=== PATIENT | male | born 1945 | race Caucasian/White ===

== ENCOUNTER 2023-03-26 14:38 | Inpatient (IN) | payer MEDICARE, SELFPAY ==
[2023-03-26] VITALS (11 sets, daily range): BP systolic 99–135; BP diastolic 60–85; PULSE 75–115; RESP 16–26; TEMP 36.9; O2SAT 89–100
--- NOTE | ~2023-03-26 | XR_ITS ---
EXAMINATION: XR chest 1V portable Exam Date/Time: 03/31/2023 12:30 APPLICATION COORDINATOR HISTORY: ? atelectasis SOB UPON EXERTION Comparison: 03/27/2023. RESULT: Lines, tubes, and devices: None. Lungs and pleura: Patchy, ill-defined bibasilar airspace disease. Cardiomediastinal silhouette: Stable. Other: No acute osseous or upper abdominal finding. IMPRESSION: Bibasilar airspace disease may represent atelectasis or pneumonia. Reviewed, dictated and finalized at location K. ICATION COORDINATOR
--- NOTE | ~2023-03-26 | XR_ITS ---
EXAMINATION: XR chest 1V portable DATE: 03/27/2023 19:00 INDICATION: Shortness of breath TECHNIQUE: frontal view of the chest was obtained. COMPARISON: Chest radiograph and CT dated 03/26/2023 FINDINGS: Right upper extremity peripherally inserted central venous catheter (PICC) tip at the mid superior v rosa cava. Mild opacities along the bilateral lung bases likely represent persistent atelectasis as se en on the CT from one day prior. No pulmonary edema, pleural effusion or pneumothorax. Heart size is normal. IMPRESSION: 1. Mild opacities at bilateral lung bases and favor persistent dependent atelectasis in the lower lob es over pneumonia. Reviewed, dictated and finalized at location A. ITALITY INTERN IMPRESSION: 1. Mild opacities at bilateral lung bases and favor persistent dependent atelec tasis in the lower lobes over pneumonia.
--- NOTE | ~2023-03-26 | CT_ITS ---
EXAMINATION: CT chest abdomen pelvis w con DATE: 03/26/2023 18:55 INDICATION: Hypoxia. Nausea and vomiting. TECHNIQUE: Computed tomography (CT) of the chest, abdomen, and pelvis was performed with 100 mL Omnip aque-350 intravenous contrast. Automated exposure control and iterative reconstruction technique were employed. The dose-length product was 1373.53 mGy-cm. COMPARISON: None FINDINGS: CHEST CT: Right upper 70 peripherally inserted central venous catheter with distal tip in the cephalad superior vena cava at the confluence of the brachiocephalic veins. Dependent atelectasis in the bilateral low er lobes. No pneumonia, pulmonary edema or pleural effusion. Heart size is normal. Atherosclerotic co ronary artery calcification. No pericardial effusion. Thoracic aorta is normal in caliber with no dis section. Multinodular goiter with intrathoracic extension. No pathologically enlarged thoracic lympha denopathy. Moderate lower cervical and mild thoracic spondylosis with bridging osteophytes at multipl e levels consistent with diffuse idiopathic skeletal hyperostosis (DISH). ABDOMEN/PELVIS CT: Liver, gallbladder, spleen, pancreas and bilateral adrenal glands are normal. There are few bilateral renal cysts the largest measuring 1.8 cm the upper pole of the left kidney. There is moderate coloni c diverticulosis with a sigmoid predominance. There is no adjacent inflammatory change to suggest div erticulitis. Small bowel and appendix are normal. Bladder is normal. No free intraperitoneal gas or fluid. No pathologically enlarged abdominal or pelvic lymphadenopathy. There is calcified atheroscler osis of the aorta and many of the other arteries. Severe lumbar spondylosis. There is subtle acute ap pearing endplate erosions at L4-L5 suggestive of discitis and osteomyelitis. IMPRESSION: 1. Subtle endplate erosions at L4-L5 suspicious for discitis and osteomyelitis and consistent with re ported history of prior spinal infection. Correlate with clinical history. 2. Multinodular goiter with intrathoracic extension. Could consider thyroid ultrasound for risk strat ification. 3. Dependent atelectasis in the bilateral lower lobes. No other acute cardiopulmonary disease. Reviewed, dictated and finalized at location A. ON INSTRUCTOR IMPRESSION: 1. Subtle endplate erosions at L4-L5 suspicious for discitis and osteomyelitis and consistent with reported history of prior spinal infection. Correlate with clinical history. 2. Multinodular goiter with intrathoracic extension. Could consider thyroid ult rasound for risk stratification. 3. Dependent atelectasis in the bilateral lower lobes. No other acute cardiopul monary disease.
--- NOTE | ~2023-03-26 | XR_ITS ---
XR chest 1V portable DATE: 03/26/2023 16:14 INDICATION: Sepsis TECHNIQUE: Portable supine AP chest on March 26, 2023 at 1609 hours COMPARISON: None FINDINGS: Right upper extremity PIC catheter tip overlies the superior vena cava. Heart size appears within normal range,, although not optimally evaluated on AP projection because of magnification. There is aortic calcification and unfolding. No hilar or mediastinal enlargement. There is mild patchy left lower lobe infiltrate and/or atelectasis. The lungs otherwise appear clear. No pleural effusion or pulmonary vascular congestion or pneumothorax. Osteopenia. Degenerative spurring of the thoracic spine. IMPRESSION: Patchy left lower lobe infiltrate and/atelectasis Aortic atherosclerosis Right upper extremity PIC catheter in superior vena cava Reviewed, dictated and finalized at location L. K CHECKER
--- NOTE | ~2023-03-26 | CT_ITS ---
EXAMINATION: CT brain wo con DATE: 03/30/2023 20:53 INDICATION: AMS . TECHNIQUE: Computed tomography (CT) of the head was performed without intravenous contrast. The mA wa s adjusted according to patient size. Iterative reconstruction technique was employed. The dose-lengt h product was 756.67 mGy-cm. COMPARISON: 03/26/2023. FINDINGS: No acute intracranial hemorrhage or extra-axial fluid collection. No hydrocephalus, mass, or herniation. No acute ischemic infarct. Unremarkable dural venous sinus attenuation. No acute osseous abnormality. The aerated spaces are clear. Mild atrophy and chronic white matter change. Atherosclerotic intracranial calcification. Bilateral l ens replacements. IMPRESSION: No acute intracranial process. Reviewed, dictated and finalized at location K. LRY MANAGER
--- NOTE | ~2023-03-26 | XR_ITS ---
EXAMINATION: XR chest PICC line INDICATION: PICC insertion TECHNIQUE: Portable AP chest at 1217 hours on 1223 hours COMPARISON: 03/31/2023 FINDINGS: A left upper extremity PICC has been placed with intravenous tip in the proximal superior v rosa cava. Cardiomegaly is noted. There is a mild diffuse interstitial pattern. Bibasilar airspace opa cities persist but have improved. IMPRESSION: 1. Left upper extremity PICC ending with its tip in the proximal superior vena cava. 2. Cardiomegaly with stable mild pulmonary edema. Reviewed, dictated and finalized at location L. ITURE FINISHER HELPER
--- NOTE | ~2023-03-26 | CT_ITS ---
EXAMINATION: CT brain wo con DATE: 03/26/2023 15:49 INDICATION: Altered mental status. TECHNIQUE: Computed tomography (CT) of the head was performed without intravenous contrast. The mA wa s adjusted according to patient size. Iterative reconstruction technique was employed. The dose-lengt h product was 681.00 mGy-cm. COMPARISON: None FINDINGS: There is no intracranial hemorrhage, acute infarction, or abnormal intracranial mass lesion . The ventricles are normal in size. There are likely changes of ocular lens replacement surgeries. T here is mild mucosal thickening in the paranasal sinuses. The mastoid air cells are normal. IMPRESSION: 1. Normal brain. Reviewed, dictated and finalized at location A. IMPRESSION: 1. Normal brain.
--- NOTE | 2023-03-26 15:06 | ECG_ITS ---
Measurements Intervals [place] Rate: 108 P: 59 OR: 185 QRS: 91 QRSD: 145 T: 9 QT: 349 QTc: 468 Interpretive Statements SINUS TACHYCARDIA RIGHT BUNDLE BRANCH BLOCK [120+ ms QRS DURATION, UPRIGHT V1, 40+ ms S IN I/aVL/V4/V5/V6] NO PREVIOUS ECG AVAILABLE FOR COMPARISON Electronically Signed On 03-26-2023 15:23:00 AWS SOLUTION ARCHITECT by Lonny Kent M.D.
[2023-03-26 15:13] LABS: Hematocrit 39.3 % (42.0-52.0); Mean Corpuscular HGB Conc 30.5 g/dl (32-36); Mean Corpuscular Hemoglobin 27.4 pg (26-34); Mean Corpuscular Volume 89.7 fl (80-100); Mean Platelet Volume 9.2 fl (7.4-10.4); Platelet Count Result 140 k/mm3 (150-375); Red Blood Count 4.38 M/mm3 (4.6-6.20); Red Cell Distribution Width 14.4 % (11.5-14.5); White Blood Count 5.8 K/mm3 (4.5-10.0)
[2023-03-26 15:24] LABS: Alanine Aminotransferase 25 U/L (6-50); Albumin Level 3.3 g/dL (3.5-5.1); Alkaline Phosphatase 85 U/L (38-126); Anion Gap 2 mmol/L (8-16); Aspartate Amino Transferase 25 U/L (17-59); Bilirubin,Total 0.7 mg/dL (0.2-1.3); Blood Urea Nitrogen 19 mg/dL (9-20); Calcium 8.6 mg/dL (8.4-10.2); Carbon Dioxide 32 mmol/L (22-30); Chloride 97 mmol/L (98-107); Estimated CRCL calculation 51 ml/min; Estimated Glomerular Filt Rate 59; Glucose 123 mg/dL (65-110); Potassium 4.7 mmol/L (3.4-5.0); Sodium 131 mmol/L (137-145)
[2023-03-26 15:26] LABS: INR 1.5; Prothrombin Time 18.7 Seconds (11.1-14.7)
[2023-03-26 15:27] LABS: Partial Thromboplastin Time 43.9 SECONDS (22.3-36.8)
[2023-03-26 15:42] LABS: Anisocytosis 1+ (NORMAL); Band Neutrophils Percent 12 % (0-6); Eosinophils Absolute Manual 0.05 K/mm3 (0.02-0.5); Eosinophils Percent Manual 1 % (0-4); Lymphocytes Absolute Manual 0.23 K/mm3 (1.1-4.5); Lymphocytes Percent Manual 4 % (18-44); Metamyelocytes Percent 1 %; Monocytes Absolute Manual 0.29 K/mm3 (0.1-0.90); Monocytes Percent Manual 5 % (3-9); Neutrophils Absolute Manual 5.16 K/mm3 (1.3-6.7); Neutrophils Percent Manual 77 % (46-73); Platelet Estimate Adequate (Adequate); Total Cells Counted 100
[2023-03-26 15:43] LABS: Schistocytes None Seen (NORMAL)
[2023-03-26] MEDS: SODIUM CHLORIDE 0.9% IV 2,800 ML/1,000 ML BAG 999 ML IV CONT ×3 (16:14→17:41)
[2023-03-26 16:39] LABS: Appearance Urine Clear (Clear); Bacteria Urine None Seen /hpf; Bilirubin Urine Negative (Negative); Blood Urine Negative (Negative); Color Urine Dark Yellow (Yellow); Glucose Urine UA Negative (Negative); Ketones Urine Trace mg/dL (Negative); Leukocyte Esterase Ur Trace LEU/UL (Negative); Need Manual Microscopic Reviewed; Nitrate Urine Negative (Negative); Non Pathogenic Casts >20; Protein Urine 2+ mg/dL (Negative); Specific Grav Ur 1.021 (1.001-1.035); Squamous Epithelial Cell Urine Occasional /hpf (Few); WBC Urine 0-5 /hpf; pH Urine 6.5 (5.0-9.0)
[2023-03-26 16:41] LABS: Add Urine Microscopic? YES
[2023-03-26 16:52] LABS: Amphetamine Screen Urine Negative (Negative); Barbiturate Screen Urine Negative (Negative); Benzodiazepines Screen Urine Negative (Negative); Cannabinoid Screen Urine Negative (Negative); Cocaine Screen Urine Negative (Negative); Methadone Screen Urine Negative (Negative); Opiate Screen Urine Positive (Negative); Phencyclidine Screen Urine Negative (Negative)
--- NOTE | 2023-03-26 17:00 | ED.AMS ---
HPI - Altered Mental Status General Chief Complaint: Altered Mental Status Stated Complaint: AMS Time Seen by Provider: 03/26/23 15:00 Source: patient and family Limitations: no limitations History of Present Illness HPI narrative: Patient is a 78-year-old male presents to the emergency department accompanied by significant other for feeling sick . Patient states that he is having recurrent nausea when asked what he means by sick. Patient denies vomiting, diarrhea. Patient admits to no bowel movements for the past 2 days and has a history of constipation for which she takes stool softeners. Patient is coming from the rehabilitation center noting that he was admitted at [facility] for an infection in his back and is on IV antibiotics via PICC line in his right upper extremity and has been taking these as prescribed and is supposed to be on them until April 19. Patient denies any chest pain, difficulty breathing, abdominal pain, numbness, weakness, sore throat, nasal congestion, fever. Patient denies history of requiring supplemental oxygen was currently on 2 L supplemental oxygen to maintain pulse oximetry greater than 92%. Patient denies cough. Related Data Home Medications Medication Instructions Recorded Confirmed acetaminophen 325 mg tablet 325 mg PO Q6H PRN Pain 03/18/23 03/18/23 albuterol sulfate 90 mcg/actuation 2 puff inhalation Q4H PRN 03/18/23 03/18/23 aerosol inhaler Shortness Of Breath Or Wheezing amiodarone 200 mg tablet 200 mg PO DAILY 03/18/23 03/18/23 apixaban 5 mg tablet 5 mg PO BID 03/18/23 03/18/23 bisacodyl 10 mg rectal suppository 10 mg RECTAL DAILY PRN 03/18/23 03/18/23 Constipation- 3rd line clotrimazole 1 % topical cream 1 applic topical BID 03/18/23 03/18/23 daptomycin 500 mg/50 mL in 0.9 % 500 mg IV DAILY 03/18/23 03/18/23 sodium chloride intravenous piggyback diphenhydramine HCl 50 mg capsule 50 mg PO Q4H PRN Itching 03/18/23 03/18/23 ketoconazole 2 % topical cream 1 applic topical BID 03/18/23 03/18/23 lidocaine 5 % topical patch 1 patch topical DAILY 03/18/23 03/18/23 (Lidoderm) metoprolol succinate 25 mg 25 mg PO DAILY 03/18/23 03/18/23 tablet,extended release 24 hr nystatin 100,000 unit/mL oral 500,000 unit PO QID 03/18/23 03/18/23 suspension ondansetron 4 mg disintegrating 4 mg PO Q6H PRN Nausea And Vomiting 03/18/23 03/18/23 tablet oxycodone 5 mg tablet 5 mg PO Q4H PRN Pain rated 6 or 03/18/23 03/18/23 greater pantoprazole 40 mg tablet,delayed 40 mg PO BID 03/18/23 03/18/23 release polyethylene glycol 3350 17 gram 17 g PO DAILY PRN constipation- 03/18/23 03/18/23 oral powder packet (Miralax) 1st line sacubitril 49 mg-valsartan 51 mg 1 tablet PO BID 03/18/23 03/18/23 tablet (Entresto) sennosides 8.6 mg tablet (senna) 8.6 mg PO DAILY PRN Constipation- 03/18/23 03/18/23 2nd line simethicone 80 mg chewable tablet 80 mg PO QID PRN gas pains 03/18/23 03/18/23 spironolactone 25 mg tablet 25 mg PO DAILY 03/18/23 03/18/23 Allergies Allergy/AdvReac Type Severity Reaction Status Date / Time cefazolin Allergy Rash Verified 03/26/23 14:58 codeine Allergy Nausea and Verified 03/26/23 14:58 Vomiting TERBINAFINE HCL Allergy RASH Uncoded 03/26/23 14:58 Review of Systems Review of Systems: A 10 system review of systems was completed on the patient and is negative except for what is stated in the HPI. Nursing and ancillary documentation was reviewed. PMFSH Social History Social History Smoking status: Never smoker Spiritual care concerns: No Comments At time of signature, I have reviewed and agree with nursing past medical, surgical, social and family history unless otherwise noted. Please see the nursing chart for further information. There is no relevant family history pertinent to the presenting complaint. Exam Narrative: CONST: No acute distress. Well nourished. Obese
--- NOTE | 2023-03-26 17:12 | PC.NURSE ---
This RN spoke with Michaela KRISHNAMURTHY at [facility] regarding pt status and current update. Michaela RN also stated that pt is normally A&Ox4
[2023-03-26 17:17] LABS: Acetaminophen < 10 ug/mL (10-30); Ammonia < 9 umol/L (9-30); Ethanol < 10 mg/dL (<10)
[2023-03-26 17:24] LABS: D Dimer 1.91 ug/mL (<0.48)
[2023-03-26 17:26] LABS: NT Pro B Type Natriuretic Pept 1840 pg/mL (19.9-100)
[2023-03-26 17:37] LABS: Lactic Acid Reflex 0.8 mmol/L (0.7-2.0)
[2023-03-26 17:38] LABS: Lipase 26 U/L (23-300); Magnesium 1.6 mg/dL (1.6-2.3)
[2023-03-26 17:43] LABS: Influenza A QL RT-PCR Negative (Negative); Influenza B QL RT-PCR Negative (Negative); RSV RNA, RT-PCR Negative (Negative); SARS-CoV-2 RNA PCR Negative (Negative)
[2023-03-26 17:47] LABS: Creatine Kinase 69 U/L (55-170)
[2023-03-26] MEDS: ONDANSETRON INJ 4 MG/2 ML VIAL IV PUSH (19:04)
[2023-03-26] MEDS: FAMOTIDINE 20 MG/2 ML VIAL IV PUSH (19:05)
--- NOTE | 2023-03-26 19:20 | PC.NURSE ---
Report given to Harsha KRISHNAMURTHY, all questions answered
--- NOTE | 2023-03-26 19:23 | PC.NURSE ---
Assumed care of pt from YESSY Segura at this time.
[2023-03-26 21:14] LABS: Procalcitonin 1.5 ng/mL
--- NOTE | 2023-03-26 21:22 | PM.IMHP ---
H&P: HPI History of Present Illness Date/Time: 03/26/23 21:22 Chief Complaint: AMS Narrative: ?Patient is a 78-year-old male with history of lumbar diskitis, atrial fibrillation who presents to the emergency department accompanied by significant other for feeling sick which he described as having recurrent nausea but no vomiting or diarrhea.? He denies chest pain, abdominal pain, shortness Of breath, fever, cough, congestion, sore throat or chills. patient admits to no bowel movements for the past 2 days and has a history of constipation for which she takes stool softeners.? Patient is coming from the rehabilitation center noting that he was admitted at [facility] for an infection in his back and is on IV antibiotics via PICC line in his right upper extremity and has been taking these as prescribed and is supposed to be on them until April 19.? Patient denies history of requiring supplemental oxygen was currently on 2 L supplemental oxygen to maintain pulse oximetry greater than 92%.? Patient was evaluated in the ER and found to be borderline hypoxemic requiring 2 L of oxygen, and also to have diskitis, elevated troponin which gradually rising. EKG showed right bundle-branch block with no acute STT wave changes. CT chest abdomen pelvis with done with contrast (not a CTA), which showed L4-L5 diskitis with atelectasis. Patient was given IV fluid and also daptomycin continued PMFSH Social History Social History Smoking status: Never smoker Spiritual care concerns: No Meds Home Medications and Allergies Home Medications Medication Instructions Recorded Confirmed Type acetaminophen 325 mg tablet 325 mg PO Q6H PRN Pain 03/18/23 03/18/23 History albuterol sulfate 90 mcg/actuation 2 puff inhalation Q4H PRN 03/18/23 03/18/23 History aerosol inhaler Shortness Of Breath Or Wheezing amiodarone 200 mg tablet 200 mg PO DAILY 03/18/23 03/18/23 History apixaban 5 mg tablet 5 mg PO BID 03/18/23 03/18/23 History bisacodyl 10 mg rectal suppository 10 mg RECTAL DAILY PRN 03/18/23 03/18/23 History Constipation- 3rd line clotrimazole 1 % topical cream 1 applic topical BID 03/18/23 03/18/23 History daptomycin 500 mg/50 mL in 0.9 % 500 mg IV DAILY 03/18/23 03/18/23 History sodium chloride intravenous piggyback diphenhydramine HCl 50 mg capsule 50 mg PO Q4H PRN Itching 03/18/23 03/18/23 History ketoconazole 2 % topical cream 1 applic topical BID 03/18/23 03/18/23 History lidocaine 5 % topical patch 1 patch topical DAILY 03/18/23 03/18/23 History (Lidoderm) metoprolol succinate 25 mg 25 mg PO DAILY 03/18/23 03/18/23 History tablet,extended release 24 hr nystatin 100,000 unit/mL oral 500,000 unit PO QID 03/18/23 03/18/23 History suspension ondansetron 4 mg disintegrating 4 mg PO Q6H PRN Nausea And Vomiting 03/18/23 03/18/23 History tablet oxycodone 5 mg tablet 5 mg PO Q4H PRN Pain rated 6 or 03/18/23 03/18/23 History greater pantoprazole 40 mg tablet,delayed 40 mg PO BID 03/18/23 03/18/23 History release polyethylene glycol 3350 17 gram 17 g PO DAILY PRN constipation- 03/18/23 03/18/23 History oral powder packet (Miralax) 1st line sacubitril 49 mg-valsartan 51 mg 1 tablet PO BID 03/18/23 03/18/23 History tablet (Entresto) sennosides 8.6 mg tablet (senna) 8.6 mg PO DAILY PRN Constipation- 03/18/23 03/18/23 History 2nd line simethicone 80 mg chewable tablet 80 mg PO QID PRN gas pains 03/18/23 03/18/23 History spironolactone 25 mg tablet 25 mg PO DAILY 03/18/23 03/18/23 History Allergies Allergy/AdvReac Type Severity Reaction Status Date / Time cefazolin Allergy Rash Verified 03/26/23 14:58 codeine Allergy Nausea and Verified 03/26/23 14:58 Vomiting TERBINAFINE HCL Allergy RASH Uncoded 03/26/23 14:58 Vital Signs Vital Signs - 24 hr 03/26/23 14:37 03/26/23 14:53 03/26/23 14:57 Temperature 98.5 F Pulse Rate 93 Res
[2023-03-26] MEDS: ASPIRIN 81 MG CHEWABLE TABLET 324 MG PO (22:42)
[2023-03-26] MEDS: SODIUM CHLORIDE 0.9% IV 1,000 ML 125 ML IV CONT (22:42)
--- NOTE | 2023-03-26 23:19 | PC.NURSE ---
Phlebotomy at bedside.
[2023-03-27] VITALS (16 sets, daily range): BP systolic 94–177; BP diastolic 47–92; PULSE 76–109; RESP 16–22; TEMP 36.1–39.2; O2SAT 94–97
--- NOTE | 2023-03-27 | ECHO_ITS ---
Patient Info Name: Baldemar Vora Age: 78 years : 1945 Gender: Male Ht: 63 in Wt: 210 lbs BSA: 2.10 m2 HR: 109 bpm BP: 119 / 62 mmHg Heart Rhythm: Sinus Rhythm Technical Quality: Good Exam Date: 03/27/2023 2:16 PM Exam Location: Echo Lab Patient Status: Inpatient Admit Date: 03/26/2023 Staff Ordering Physician: Radhames Polanco MD [employer]: Cristofer Nice RDCS Attending Provider: Opal Calzada MD Referring Physician: Sherri GONZALES; Exam Type: CA echo dop color flow w con Study Info Indications - heart failure Complete two-dimensional, color flow and Doppler transthoracic echocardiogram is performed with contrast to opacify the left ventricle and to improve the deliniation of the left ventricle endocardial borders. Contrast/Agitated Saline Contrast/Ag. Saline: Definity Amount: 3.00 ml Summary 1. Left ventricular chamber dimension is normal. 2. Left ventricular systolic function is normal, estimated at 65-70%. 3. There is moderately increased left ventricular wall thickness. 4. The left ventricular diastolic function is grade I diastolic dysfunction. 5. Left atrial chamber dimension is mildly enlarged. 6. There is mild mitral valve regurgitation. 7. There is mild tricuspid valve regurgitation. Left Ventricle Left ventricular chamber dimension is normal. Left ventricular systolic function is normal, estimated at 65-70%. There is moderately increased left ventricular wall thickness. The left ventricular diastolic function is grade I diastolic dysfunction. Right Ventricle Right ventricular chamber dimension is normal. Right ventricular systolic function is normal. Left Atria Left atrial chamber dimension is mildly enlarged. Right Atria Right atrial chamber dimension is normal. Atrial Septum Intact interatrial septum visualized by color flow imaging. Aortic Valve The aortic valve is trileaflet. There is mild aortic valve sclerosis. There is no aortic valve stenosis. There is trace aortic valve regurgitation. Pulmonic Valve The pulmonic valve is normal. There is no pulmonic valve stenosis. There is trace pulmonic regurgitation. Mitral Valve The mitral valve has normal leaflets. There is no mitral valve stenosis. There is mild mitral valve regurgitation. Tricuspid Valve The tricuspid valve leaflets are normal. There is no significant tricuspid valve stenosis. There is mild tricuspid valve regurgitation. No pulmonary hypertension, estimated pulmonary arterial systolic pressure is 19 mmHg. Pericardium/Pleural The pericardium appears normal. There is no pericardial effusion. Inferior Vena Cava Normal inferior vena cava with >50% collapse upon inspiration consistent with normal right atrial pressure, 10 mmHg. Aorta The aortic root size at the sinus of Valsalva is normal. Left Ventricular Outflow Tract Name Value Normal LVOT 2D LVOT Diameter 2.22 cm LVOT Doppler LVOT Peak Gradient 6 mmHg LVOT Mean Gradient 3 mmHg LVOT VTI 28.33 cm LVOT VTI/AV VTI Ratio 0.71 LVOT Stroke Volume
--- NOTE | 2023-03-27 00:09 | ADMGEN ---
This patient, Baldemar Vora, was admitted to IMU Room 232-01. Patient/family oriented to hospital policies and general routines including ID bracelet, bed and alarms, visiting hours, pain management, procedures, bathroom and other care routines, personal items, smoking policy, room service/diet, and visiting hours. Information on how to activate the Rapid Response Team has been discussed. Patient/Family are encouraged to report perceived risks to care and to ask questions if they do not understand what they are told or what they should do.
[2023-03-27 00:10] LABS: Troponin I 0.056 ng/mL (0.000-0.034)
[2023-03-27] MEDS: AMIODARONE HCL 200 MG TABLET PO (10:18)
[2023-03-27] MEDS: APIXABAN 5 MG TABLET PO ×2 (10:19→21:33)
[2023-03-27] MEDS: METOPROLOL SUCCINATE EXT REL 25 MG TABCR PO (10:19)
[2023-03-27] MEDS: DAPTOmycin 500 MG in SODIUM CHLORIDE 0.9% IV 50 ML 100 MG IVPB (10:19)
[2023-03-27] MEDS: LIDOCAINE 5% PATCH 1 PATCH TOPICAL (10:19)
[2023-03-27] MEDS: PANTOPRAZOLE 40 MG TABLET PO ×2 (10:20→21:33)
[2023-03-27] MEDS: polyethylene glycoL 3350 17 GM POWD.PACK PO (10:20)
[2023-03-27] MEDS: SPIRONOLACTONE 25 MG TABLET PO (10:20)
[2023-03-27] MEDS: SACUBITRIL/VALSARTAN 49-51 MG TABLET 1 TABLET PO ×2 (10:20→21:33)
[2023-03-27] MEDS: MICONAZOLE NITRATE 2% CREAM 30 GM TUBE 1 APPLIC TOPICAL ×2 (10:20→21:35)
[2023-03-27] MEDS: oxyCODONE HCL (*CRX) 5 MG TAB IR PO ×2 (10:20→18:26)
[2023-03-27] MEDS: NYSTATIN 100,000 UNITS/ML SUSP 5 ML ORAL.SUSP PO ×4 (10:20→21:33)
--- NOTE | 2023-03-27 11:40 | PM.IMPN ---
Progress Note: A&P Assessment and Plan (1) Elevated troponin: Code(s): R79.89 - Other specified abnormal findings of blood chemistry Status: Acute (2) Acute hypoxemic respiratory failure: Code(s): J96.01 - Acute respiratory failure with hypoxia Status: Acute (3) Lumbar discitis: Code(s): M46.46 - Discitis, unspecified, lumbar region Status: Acute (4) Afib: Code(s): I48.91 - Unspecified atrial fibrillation Status: Acute (5) Hypoxia: Code(s): R09.02 - Hypoxemia Status: Acute Plan ?Patient is a 78-year-old male presents to the emergency department accompanied by significant other for feeling sick .? Patient states that he is having recurrent nausea when asked what he means by sick.? Patient denies vomiting, diarrhea.? Patient admits to no bowel movements for the past 2 days and has a history of constipation for which she takes stool softeners.? Patient is coming from the rehabilitation center noting that he was admitted at [facility] for an infection in his back and is on IV antibiotics via PICC line in his right upper extremity and has been taking these as prescribed and is supposed to be on them until April 19.?? Paroxysmal atrial fibrillation his EKG showed right bundle-branch block, no prior EKG for comparison, Continue amiodarone 200 mg daily Eliquis 5 mg b.i.d. p.o. Number diskitis CT chest abdomen pelvis with contrast was done found to have diskitis at L4-L5. nd IV daptomycin will be continued nd IV daptomycin will be continued Patient has low-grade fever, 99.9 tachycardia tachypnea, repeated CBC BMP blood culture today 03/27 Hypoxemia Dependent atelectasis in the bilateral lower lobes. No other acute cardiopulmonary disease. CT with contrast does not show PE Elevated troponin could be secondary to hypoxia, dehydration, or ACS. initial troponin is borderline elevated -0.04 and a repeat was 0.06, Patient will be admitted for for a cardiac evaluation Aspirin 325 mg once, continue aspirin 81 mg daily p.o. Follow-up echocardiogram Telemetry monitoring Consult billet recorder for evaluation treatment Subjective Date/time seen: 03/27/23 11:40 Interval history: I saw exam patient today, patient denies chest pain, shortness of breath is improving, patient denies abdomen pain, nausea vomiting diarrhea dysuria. Patient has low-grade fever 99.9, tachycardia and tachypnea Exam Narrative: GENERAL: Pleasant, in no acute distress. Well-nourished., obesity - EYES: EOMI. Anicteric. - HENT: Moist mucous membranes. - LUNGS: Clear to auscultation bilaterally, no wheezing, rhonchi, or rales. - CARDIOVASCULAR: Regular rate and rhythm. No murmur. No JVD. - ABDOMEN: Soft, non-tender and non-distended. No palpable masses. - EXTREMITIES: No edema. Peripheral pulses 2+. Non-tender. - NEUROLOGIC: No focal neurological deficits. CN II-XII grossly intact. - PSYCHIATRIC: Awake, Alert and oriented x 3. Appropriate mood and affect. - SKIN: No rashes or lesions. Warm. - LYMPH: No cervical lymphadenopathy.. Objective Data Vital Signs Vital Signs: Vital Signs - 24 hr 03/26/23 14:37 03/26/23 14:53 03/26/23 14:57 Temperature 98.5 F Pulse Rate 93 Respiratory Rate 26 H Blood Pressure 119/68 Pulse Oximetry 89 L 94 94 Oxygen Delivery Room Air Nasal Cannula Nasal Cannula Oxygen Flow Rate 3 3 03/26/23 14:57 03/26/23 16:18 03/26/23 17:42 Temperature Pulse Rate 115 H 100 88 Respiratory Rate 21 H 22 H Blood Pressure 104/64 112/69 Pulse Oximetry 95 95 Oxygen Delivery Oxygen Flow Rate 03/26/23 19:16 03/26/23 20:01 03/26/23 21:55 Temperature Pulse Rate 75 75 83 Respiratory Rate 17 19 18 Blood Pressure 99/60 L 102/67 116/70 Pulse Oximetry 95 97 100 Oxygen Delivery Oxygen Flow Rate 03/26/23 22:47 03/26/23 23:42 03/26/23 23:57 Temperature Pulse Rate 80 85 83 Respiratory Rate 17 16 16 Blood Pressure 135
--- NOTE | 2023-03-27 12:52 | PM.CNCAR ---
Assessment and Plan Assessment and plan (1) HFrEF (heart failure with reduced ejection fraction): Code(s): I50.20 - Unspecified systolic (congestive) heart failure Status: Acute Assessment and Plan: Patient has a history of heart failure with reduced ejection fraction. Continue Entresto, metoprolol succinate, spironolactone (2) HTN (hypertension): Code(s): I10 - Essential (primary) hypertension Status: Acute Assessment and Plan: Continue above med (3) Lumbar discitis: Code(s): M46.46 - Discitis, unspecified, lumbar region Status: Acute Assessment and Plan: On antibiotics per hospitalist. My concern is that his symptoms are actually recurrent bacteremia. Agree with repeat blood cultures were drawn yesterday (4) Elevated troponin: Code(s): R79.89 - Other specified abnormal findings of blood chemistry Status: Acute Assessment and Plan: Not related ACS. His history nor EKG are consistent with acute coronary syndrome. His minimally elevated troponins without significant rise and fall. Will order a complete 2D echocardiogram Doppler (5) Paroxysmal atrial fibrillation: Code(s): I48.0 - Paroxysmal atrial fibrillation Status: Acute Assessment and Plan: On amiodarone in sinus rhythm and on anticoagulation History of Present Illness History of Present Illness Consult date/time: 03/27/23 12:52 Requesting physician: Ruchi Vasquez MD Consult reason: Other (Elevated troponin) Reason For Visit: Elevated Troponin Narrative: Reason for consultation: Elevated troponin, suspect ACS Requesting provider: Dr. Vasquez Date of service 03/27/2023: History patient is a 78-year-old male who has a history of lumbar diskitis. Went to [facility] because of low back pain. Was found to have diskitis and also was found in atrial fibrillation with rapid ventricular response. He did have a VANIA guided cardioversion while at [facility]. He was started on antibiotics and was transferred to [place] rehab. Yesterday he had an episode of feeling chilled as well as should bring. He fell alternating hot and cold. At no point did he have any chest pain, shortness of breath, syncope, presyncope, paroxysmal nocturnal dyspnea, orthopnea, edema palpitations. Came to the hospital and troponins were drawn for uncertain reasons but they were minimally elevated and which which they have remained. Review of Systems Review of Systems: All systems reviewed & are unremarkable except as noted in HPI and below Constitutional: Constitutional: Reports body ache(s) Eyes: Eyes: Denies blurry vision ENT: Reports Normal hearing present Cardiovascular: Cardiovascular: Denies chest pain Respiratory: Respiratory: Denies chest congestion Gastrointestinal: Gastrointestinal: Denies abdominal pain Genitourinary: Genitourinary: Denies hematuria Musculoskeletal: Musculoskeletal: Reports back pain Integumentary/Breasts: Skin/Breast: Denies pruritus, Reports erythema and Reports rash Neurologic: Denies Abnormal speech present Psychiatric: Psychiatric: Denies anxiety Endocrine: Endocrine: Reports excessive sweating Hematologic/Lymphatic: Hematologic/Lymphatic: Denies easy bleeding Allergic/Immunologic: Allergic/Immunologic: Denies GI upset with certain foods PMFSH Past Medical History Medical History (Updated 03/27/23 @ 13:00 by Radhames Polanco MD) HFrEF (heart failure with reduced ejection fraction) HTN (hypertension) Lumbar discitis Family History Family History (Updated 03/27/23 @ 00:18 by Mary Love RN) Sibling Lymphoma Mother TIA (transient ischemic attack) Breast cancer Father Cancer Social History Social History Smoking status: Never smoker Alcohol intake: never Substance use: never Substance use type: does not use Do You Feel Safe
--- NOTE | 2023-03-27 13:01 | ECG_ITS ---
Measurements Intervals [place] Rate: 86 P: 40 OR: 180 QRS: 82 QRSD: 144 T: 33 QT: 377 QTc: 452 Interpretive Statements SINUS RHYTHM RIGHT BUNDLE BRANCH BLOCK [120+ ms QRS DURATION, UPRIGHT V1, 40+ ms S IN I/aVL/V4/V5/V6] COMPARED TO ECG 03/26/2023 15:14:24 SINUS RHYTHM NOW PRESENT Electronically Signed On 03-27-2023 14:41:36 [employer] by Lonny Kent M.D.
[2023-03-27] MEDS: PERFLUTREN LIPID MICROSPHERES 1.5 ML VIAL DILUTED TO 10 ML TOTAL VOLUME IV PUSH (14:35)
--- NOTE | 2023-03-27 14:59 | IVDEFINITY ---
Prior to administration of IV Definity the patient was educated on the risks and benefits of the imaging enhancing agent including potential adverse side effects. The patient verbalized understanding. Allergies were verified. No exclusion criteria were identified and at least one of the following inclusion criteria were met: 1) physician request, 2) patient technically difficult to image (per the [place] [employer] guidelines of two or more segments not discernable within the apical view), or 3) questionable left ventricular function. ?
[2023-03-27 15:22] LABS: MRSA (PCR) NOT DETECTED (NOT DETECTE)
[2023-03-27 17:30] LABS: Basophils Percent Auto 0.6 % (0.2-1.2); Eosinophils Percent Auto 0.6 % (0-4.4); Hematocrit 33.1 % (42.0-52.0); Hemoglobin 9.7 g/dL (14.0-18.0); Immature Granulocyte Absolute 0.03 K/mm3 (0.00-0.031); Immature Granulocyte Percent A 0.9 % (0-0.5); Immature Platelet Fraction Pct 1.9 % (0.9-11.2); Lymphocytes Absolute Auto 0.26 K/mm3 (0.9-3.2); Lymphocytes Percent Auto 7.7 % (18.3-44.2); Mean Corpuscular HGB Conc 29.3 g/dl (32-36); Mean Corpuscular Hemoglobin 27.2 pg (26-34); Monocytes Absolute Auto 0.3 K/mm3 (0.1-0.6); Monocytes Percent Auto 9.8 % (2.6-8.5); Neutrophils Absolute Auto 2.7 K/mm3 (1.3-6.7); Neutrophils Percent Auto 80.4 % (45.5-73.1); Platelet Count Result 87 k/mm3 (150-375); Red Blood Count 3.56 M/mm3 (4.6-6.20); Red Cell Distribution Width 14.5 % (11.5-14.5); White Blood Count 3.4 K/mm3 (4.5-10.0)
[2023-03-27 17:42] LABS: Anion Gap 4 mmol/L (8-16); Blood Urea Nitrogen 18 mg/dL (9-20); Calcium 8.2 mg/dL (8.4-10.2); Carbon Dioxide 28 mmol/L (22-30); Chloride 102 mmol/L (98-107); Estimated CRCL calculation 62 ml/min; Estimated Glomerular Filt Rate > 60; Glucose 172 mg/dL (65-110); Potassium 3.9 mmol/L (3.4-5.0); Sodium 134 mmol/L (137-145)
[2023-03-27 17:59] LABS: Platelet Estimate Decreased (Adequate); Schistocytes None Seen (NORMAL)
[2023-03-27 18:00] LABS: Hypochromasia 1+ (NORMAL)
--- NOTE | 2023-03-27 18:48 | PC.NURSE ---
patient shivering, checked temp 102.5. Called Dr. Vasquez, orders for antibiotic, urine culture, and CXR.
[2023-03-27] MEDS: CEFEPIME 2 GM/NS 50 ML 2 GM/50 ML BAG IVPB (21:31)
[2023-03-27] MEDS: SODIUM CHLORIDE 0.9% IV 1,000 ML 125 ML IV CONT (21:32)
[2023-03-27] MEDS: SENNOSIDES 8.6 MG TABLET PO (21:33)
[2023-03-28] VITALS (19 sets, daily range): BP systolic 92–104; BP diastolic 50–65; PULSE 68–107; RESP 16–24; TEMP 36.2–38.7; O2SAT 93–100
[2023-03-28] MEDS: ACETAMINOPHEN 325 MG TABLET 650 MG PO ×3 (00:28→18:06)
[2023-03-28 01:11] LABS: Appearance Urine Turbid (Clear); Bacteria Urine None Seen /hpf; Bilirubin Urine 1+ (Negative); Blood Urine 1+ (Negative); Color Urine Dark Yellow (Yellow); Glucose Urine UA Negative (Negative); Ketones Urine Trace mg/dL (Negative); Leukocyte Esterase Ur 1+ LEU/UL (Negative); Need Manual Microscopic Reviewed; Nitrate Urine Negative (Negative); Protein Urine 2+ mg/dL (Negative); Specific Grav Ur 1.034 (1.001-1.035); Squamous Epithelial Cell Urine Few /hpf (Few); WBC Urine 0-5 /hpf; pH Urine 5.5 (5.0-9.0)
[2023-03-28 01:14] LABS: Add Urine Microscopic? YES
[2023-03-28] MEDS: CEFEPIME 2 GM/NS 50 ML 2 GM/50 ML BAG IVPB ×3 (05:08→20:37)
[2023-03-28] MEDS: METOPROLOL SUCCINATE EXT REL 25 MG TABCR PO (09:36)
[2023-03-28] MEDS: SPIRONOLACTONE 25 MG TABLET PO (09:36)
[2023-03-28] MEDS: SACUBITRIL/VALSARTAN 49-51 MG TABLET 1 TABLET PO ×2 (09:36→20:39)
[2023-03-28] MEDS: APIXABAN 5 MG TABLET PO ×2 (09:36→20:38)
[2023-03-28] MEDS: AMIODARONE HCL 200 MG TABLET PO (09:36)
[2023-03-28] MEDS: NYSTATIN 100,000 UNITS/ML SUSP 5 ML ORAL.SUSP PO ×4 (09:36→20:38)
[2023-03-28] MEDS: LIDOCAINE 5% PATCH 1 PATCH TOPICAL (09:37)
[2023-03-28] MEDS: PANTOPRAZOLE 40 MG TABLET PO ×2 (09:37→20:38)
[2023-03-28] MEDS: DAPTOmycin 500 MG in SODIUM CHLORIDE 0.9% IV 50 ML 100 MG IVPB (09:37)
[2023-03-28] MEDS: polyethylene glycoL 3350 17 GM POWD.PACK PO (09:37)
[2023-03-28] MEDS: MICONAZOLE NITRATE 2% CREAM 30 GM TUBE 1 APPLIC TOPICAL ×2 (09:37→20:38)
--- NOTE | 2023-03-28 10:29 | PM.IMPN ---
Progress Note: A&P Assessment and Plan (1) Sepsis: Code(s): A41.9 - Sepsis, unspecified organism Status: Acute (2) Hospital-acquired pneumonia: Code(s): J18.9 - Pneumonia, unspecified organism; Y95 - Nosocomial condition Status: Acute (3) Multifocal pneumonia: Code(s): J18.9 - Pneumonia, unspecified organism Status: Acute (4) Hypoxia: Code(s): R09.02 - Hypoxemia Status: Acute (5) Elevated troponin: Code(s): R79.89 - Other specified abnormal findings of blood chemistry Status: Acute (6) Acute hypoxemic respiratory failure: Code(s): J96.01 - Acute respiratory failure with hypoxia Status: Acute (7) Lumbar discitis: Code(s): M46.46 - Discitis, unspecified, lumbar region Status: Acute (8) Afib: Code(s): I48.91 - Unspecified atrial fibrillation Status: Acute Plan ?Patient is a 78-year-old male presents to the emergency department accompanied by significant other for feeling sick .? Patient states that he is having recurrent nausea when asked what he means by sick.? Patient denies vomiting, diarrhea.? Patient admits to no bowel movements for the past 2 days and has a history of constipation for which she takes stool softeners.? Patient is coming from the rehabilitation center noting that he was admitted at [facility] for an infection in his back and is on IV antibiotics via PICC line in his right upper extremity and has been taking these as prescribed and is supposed to be on them until April 19.?? Paroxysmal atrial fibrillation his EKG showed right bundle-branch block, no prior EKG for comparison, Continue amiodarone 200 mg daily Eliquis 5 mg b.i.d. p.o. Number diskitis CT chest abdomen pelvis with contrast was done found to have diskitis at L4-L5. nd IV daptomycin will be continued nd IV daptomycin will be continued Patient has low-grade fever, 99.9 tachycardia tachypnea, repeated CBC BMP blood culture today 03/27 Acute respiratory failure with hypercapnia Dependent atelectasis in the bilateral lower lobes. No other acute cardiopulmonary disease. CT with contrast does not show PE Possible due to new pneumonia Start DuoNeb scheduled albuterol nebulizer as needed Start CPAP respiratory therapist Elevated troponin could be secondary to hypoxia, dehydration, or ACS. initial troponin is borderline elevated -0.04 and a repeat was 0.06, Patient will be admitted for for a cardiac evaluation Aspirin 325 mg once, continue aspirin 81 mg daily p.o. Follow-up echocardiogram Telemetry monitoring Consult transit mechanic for evaluation treatment Sepsis, multifocal pneumonia: Suspecting hospital-acquired pneumonia versus aspiration pneumonia Patient had a fever 102.5 yesterday, leukopenia 2.7, tachycardia tachypnea, meeting criteria of sepsis X-ray showed bilateral base pneumonia, suspecting hospital-acquired pneumonia given recent hospitalization versus aspiration pneumonia speech evaluation Patient is on daptomycin, and cefepime Now patient has no fever Blood culture grows Gram-negative bacilli, urine culture pending Continue current antibiotics Subjective Date/time seen: 03/28/23 10:29 Interval history: Patient had a fever yesterday 102.5, patient on daptomycin, cefepime was as needed. Blood culture drawn yesterday 1 bottle grows Gram-negative bacilli, output of spending urinalysis pending. Afebrile in the morning. X-ray yesterday showed bilateral lung base opacity, suggesting pneumonia. Exam Narrative: GENERAL: Pleasant, in no acute distress. Well-nourished., obesity - EYES: EOMI. Anicteric. - HENT: Moist mucous membranes. - LUNGS: Crackles bilateral base, no wheezing, rhonchi, or rales. - CARDIOVASCULAR: Regular rate and rhythm. No murmur. No JVD. - ABDOMEN: Soft, non-tender and non-distended. No palpable masses. - EXTREMITIES: No edema. Peripheral pulses 2+. Non-tender. - NEUROLOGIC: No focal
--- NOTE | 2023-03-28 11:10 | PM.PNCARD ---
Progress Note: A&P Assessment and Plan (1) HFrEF (heart failure with reduced ejection fraction): Code(s): I50.20 - Unspecified systolic (congestive) heart failure Status: Acute Assessment and Plan: Patient has a history of heart failure with reduced ejection fraction. Continue Entresto, metoprolol succinate, spironolactone (2) HTN (hypertension): Code(s): I10 - Essential (primary) hypertension Status: Acute Assessment and Plan: Continue above med (3) Lumbar discitis: Code(s): M46.46 - Discitis, unspecified, lumbar region Status: Acute Assessment and Plan: On antibiotics per hospitalist. My concern is that his symptoms are actually recurrent bacteremia. Agree with repeat blood cultures were drawn yesterday (4) Elevated troponin: Code(s): R79.89 - Other specified abnormal findings of blood chemistry Status: Acute Assessment and Plan: Not related ACS. His history nor EKG are consistent with acute coronary syndrome. His minimally elevated troponins without significant rise and fall. ECHO has been performed but pending. If unremarkable, cardiology to sign off (5) Paroxysmal atrial fibrillation: Code(s): I48.0 - Paroxysmal atrial fibrillation Status: Acute Assessment and Plan: On amiodarone in sinus rhythm and on anticoagulation Plan patient has urosepsis. Treatment per hospitalist Subjective Date/time seen: 03/28/23 11:10 Interval history: 78-year-old admitted for weakness fevers and chills. Date of service 03/28/2023: No chest pain or shortness of breath. Feels a little better today. Review of Systems Review of Systems: All systems reviewed & are unremarkable except as noted in HPI and below Constitutional: Constitutional: Reports body ache(s) and Reports excessive sweating Eyes: Eyes: Denies blurry vision ENT: Reports Normal hearing present Cardiovascular: Cardiovascular: Denies chest pain Respiratory: Respiratory: Denies chest congestion Gastrointestinal: Gastrointestinal: Denies abdominal pain Genitourinary: Genitourinary: Denies hematuria Musculoskeletal: Musculoskeletal: Reports back pain Integumentary/Breasts: Skin/Breast: Denies pruritus, Reports erythema and Reports rash Neurologic: Reports Normal hearing present and Denies Abnormal speech present Psychiatric: Psychiatric: Denies anxiety Endocrine: Endocrine: Reports excessive sweating Hematologic/Lymphatic: Hematologic/Lymphatic: Denies easy bleeding Allergic/Immunologic: Allergic/Immunologic: Denies GI upset with certain foods Exam Narrative: Awake alert oriented appears to be in no acute distress. Appears stated age Const: General: comfortable and no acute distress HENMT: Ears: TM's normal bilaterally Face/Nose/Sinus: Normal nares present Mouth: Yes moist mucous membranes Eyes: General: appearance normal, both eyes and all related structures Sclera: sclerae normal Neck: Neck: supple and no JVD Chest: Other: No reproducible chest wall pain to palpation Resp: Effort & Inspection: normal respiratory effort Auscultation: clear to auscultation bilaterally Cardio: Rate: regular rate Rhythm: regular rhythm Heart sounds: no murmurs GI: Inspection: non-distended Auscultation: normal bowel sounds Skin: General skin exam: normal color, erythema and rashes Rashes: rashes noted Neuro: Cranial nerves: Yes Normal hearing present Speech: normal speech and No Abnormal speech present Sensory Exam: normal sensation Extrem: General: normal to inspection and no edema Psych: Mental Status: mental status grossly normal Affect: normal affect Objective Data Vital Signs Vital Signs: Vital Signs - 24 hr 03/27/23 11:59 03/27/23 12:00 03/27/23 16:00 Temperature 37.7 C H 36.8 C Pulse Rate 107 H 109 H 84 Respiratory Rate 20 22 H Blood Pressure 119/62 94/47 L Pulse Oximetry 95 97 Oxygen Delivery O
[2023-03-28] MEDS: SODIUM CHLORIDE 0.9% IV 1,000 ML 125 ML IV CONT ×2 (12:36→22:43)
[2023-03-28] MEDS: oxyCODONE HCL (*CRX) 5 MG TAB IR PO (12:43)
[2023-03-28 12:47] LABS: Hematocrit 31.5 % (42.0-52.0); Hemoglobin 9.3 g/dL (14.0-18.0); Immature Platelet Fraction Pct 3.4 % (0.9-11.2); Mean Corpuscular HGB Conc 29.5 g/dl (32-36); Mean Corpuscular Hemoglobin 26.8 pg (26-34); Mean Corpuscular Volume 90.8 fl (80-100); Mean Platelet Volume 10.3 fl (7.4-10.4); Platelet Count Result 56 k/mm3 (150-375); Red Blood Count 3.47 M/mm3 (4.6-6.20); Red Cell Distribution Width 14.7 % (11.5-14.5); White Blood Count 2.7 K/mm3 (4.5-10.0)
[2023-03-28 12:55] LABS: Alveolar/Arterial O2 Gradient 35.6 mmHg; Base Excess ABG 0.7 mEq/l (+/-2.0); Device NASAL CANNULA; Fractional Inspired Oxygen 28 %; HCO3 ABG 27.5 mEq/l (22.0-26.0); Modified Allen's Test Pass; Oxygen Content ABG 14.1 %vol (16.0-22.0); Oxygen Saturation ABG 96.9 % (95.0-100.0); Oxyhemoglobin 96.2 % THb (90.0-100.0); PO2 ABG 99.1 mmHg (80.0-100.0); PO2 FiO2 Ratio Arterial Blood 3.54 %; Site Drawn LEFT RADIAL; Total Hemoglobin 10.3 g/dL (12.0-18.0); pH ABG 7.317 (7.350-7.450)
[2023-03-28 13:04] LABS: Alanine Aminotransferase 26 U/L (6-50); Albumin Level 2.3 g/dL (3.5-5.1); Alkaline Phosphatase 82 U/L (38-126); Anion Gap 2 mmol/L (8-16); Aspartate Amino Transferase 36 U/L (17-59); Bilirubin,Total 0.5 mg/dL (0.2-1.3); Blood Urea Nitrogen 23 mg/dL (9-20); Calcium 7.8 mg/dL (8.4-10.2); Carbon Dioxide 30 mmol/L (22-30); Chloride 103 mmol/L (98-107); Estimated CRCL calculation 62 ml/min; Estimated Glomerular Filt Rate > 60; Glucose 135 mg/dL (65-110); Sodium 135 mmol/L (137-145)
[2023-03-28 13:15] LABS: Band Neutrophils Percent 29 % (0-6); Eosinophils Absolute Manual 0.02 K/mm3 (0.02-0.5); Eosinophils Percent Manual 1 % (0-4); Lymphocytes Absolute Manual 0.21 K/mm3 (1.1-4.5); Monocytes Absolute Manual 0.13 K/mm3 (0.1-0.90); Monocytes Percent Manual 5 % (3-9); Neutrophils Absolute Manual 2.32 K/mm3 (1.3-6.7); Neutrophils Percent Manual 57 % (46-73); Total Cells Counted 100
[2023-03-28 13:16] LABS: Anisocytosis 1+ (NORMAL); Hypochromasia 1+ (NORMAL); Platelet Estimate Decreased (Adequate); Schistocytes None Seen (NORMAL)
[2023-03-28] MEDS: CENTRAL LINE FLUSH 10 ML IV PUSH ×2 (14:00→20:39)
[2023-03-28] MEDS: IPRATROPIUM 0.5 MG/ALBUTEROL SULFATE 2.5 MG AMPUL.NEB 3 ML INHALATION ×2 (14:17→21:24)
[2023-03-28] MEDS: SENNOSIDES 8.6 MG TABLET PO (18:05)
[2023-03-28 19:08] LABS: Basophils Percent Auto 0.4 % (0.2-1.2); Eosinophils Absolute Auto 0.1 K/mm3 (0-0.3); Eosinophils Percent Auto 5.2 % (0-4.4); Hematocrit 31.8 % (42.0-52.0); Hemoglobin 9.4 g/dL (14.0-18.0); Immature Granulocyte Absolute 0.02 K/mm3 (0.00-0.031); Immature Granulocyte Percent A 0.8 % (0-0.5); Immature Platelet Fraction Pct 4.3 % (0.9-11.2); Lymphocytes Absolute Auto 0.24 K/mm3 (0.9-3.2); Lymphocytes Percent Auto 9.6 % (18.3-44.2); Mean Corpuscular HGB Conc 29.6 g/dl (32-36); Mean Corpuscular Hemoglobin 27.2 pg (26-34); Mean Corpuscular Volume 91.9 fl (80-100); Mean Platelet Volume 10.8 fl (7.4-10.4); Monocytes Absolute Auto 0.2 K/mm3 (0.1-0.6); Monocytes Percent Auto 8.4 % (2.6-8.5); Neutrophils Absolute Auto 1.9 K/mm3 (1.3-6.7); Neutrophils Percent Auto 75.6 % (45.5-73.1); Platelet Count Result 60 k/mm3 (150-375); Red Blood Count 3.46 M/mm3 (4.6-6.20); Red Cell Distribution Width 14.7 % (11.5-14.5); White Blood Count 2.5 K/mm3 (4.5-10.0)
[2023-03-28 19:21] LABS: Anisocytosis 1+ (NORMAL); Ovalocytes 1+ (NORMAL); Platelet Estimate Decreased (Adequate); Schistocytes None Seen (NORMAL)
[2023-03-28 19:33] LABS: Anion Gap 3 mmol/L (8-16); Blood Urea Nitrogen 25 mg/dL (9-20); Calcium 7.9 mg/dL (8.4-10.2); Carbon Dioxide 29 mmol/L (22-30); Chloride 102 mmol/L (98-107); Estimated CRCL calculation 62 ml/min; Estimated Glomerular Filt Rate > 60; Glucose 113 mg/dL (65-110); Potassium 3.8 mmol/L (3.4-5.0); Sodium 134 mmol/L (137-145)
--- NOTE | 2023-03-28 21:45 | PC.NURSE ---
This patient, Baldemar Vora, was transferred to [facility] on 03/28/23 at 2145. Personal belongings sent with patient. Report given to YESSY Clay. Appropriate documentation sent with patient.
[2023-03-28] MEDS: diphenhydrAMINE HCl CAP 25 MG CAPSULE 50 MG PO (22:16)
[2023-03-29] VITALS (17 sets, daily range): BP systolic 110–137; BP diastolic 68–85; PULSE 69–91; RESP 16–18; TEMP 36.4–36.8; O2SAT 92–97
[2023-03-29] MEDS: CEFEPIME 2 GM/NS 50 ML 2 GM/50 ML BAG IVPB ×3 (03:19→20:07)
[2023-03-29] MEDS: CENTRAL LINE FLUSH 10 ML IV PUSH (05:26)
[2023-03-29 05:30] LABS: Basophils Percent Auto 0.4 % (0.2-1.2); Eosinophils Absolute Auto 0.2 K/mm3 (0-0.3); Eosinophils Percent Auto 7.6 % (0-4.4); Hemoglobin 8.9 g/dL (14.0-18.0); Immature Granulocyte Absolute 0.01 K/mm3 (0.00-0.031); Immature Granulocyte Percent A 0.4 % (0-0.5); Immature Platelet Fraction Pct 3.6 % (0.9-11.2); Lymphocytes Absolute Auto 0.31 K/mm3 (0.9-3.2); Lymphocytes Percent Auto 13.1 % (18.3-44.2); Mean Corpuscular HGB Conc 29.7 g/dl (32-36); Mean Corpuscular Hemoglobin 26.8 pg (26-34); Mean Corpuscular Volume 90.4 fl (80-100); Mean Platelet Volume 10.2 fl (7.4-10.4); Monocytes Absolute Auto 0.4 K/mm3 (0.1-0.6); Monocytes Percent Auto 14.8 % (2.6-8.5); Neutrophils Absolute Auto 1.5 K/mm3 (1.3-6.7); Neutrophils Percent Auto 63.7 % (45.5-73.1); Platelet Count Result 56 k/mm3 (150-375); Red Blood Count 3.32 M/mm3 (4.6-6.20); Red Cell Distribution Width 14.7 % (11.5-14.5); White Blood Count 2.4 K/mm3 (4.5-10.0)
[2023-03-29 05:37] LABS: Anion Gap 0 mmol/L (8-16); Blood Urea Nitrogen 19 mg/dL (9-20); Calcium 7.8 mg/dL (8.4-10.2); Carbon Dioxide 30 mmol/L (22-30); Chloride 105 mmol/L (98-107); Creatine Kinase < 20 U/L (55-170); Estimated CRCL calculation 69 ml/min; Estimated Glomerular Filt Rate > 60; Glucose 99 mg/dL (65-110); Potassium 3.8 mmol/L (3.4-5.0); Sodium 135 mmol/L (137-145)
[2023-03-29 05:53] LABS: Platelet Estimate Decreased (Adequate)
[2023-03-29 05:55] LABS: Anisocytosis 1+ (NORMAL); Microcytosis 1+ (NORMAL); Ovalocytes 1+ (NORMAL); Schistocytes None Seen (NORMAL)
[2023-03-29] MEDS: IPRATROPIUM 0.5 MG/ALBUTEROL SULFATE 2.5 MG AMPUL.NEB 3 ML INHALATION ×3 (07:29→20:45)
--- NOTE | 2023-03-29 08:21 | PM.IMPN ---
Progress Note: A&P Assessment and Plan (1) Sepsis: Code(s): A41.9 - Sepsis, unspecified organism Status: Acute (2) Hospital-acquired pneumonia: Code(s): J18.9 - Pneumonia, unspecified organism; Y95 - Nosocomial condition Status: Acute (3) Multifocal pneumonia: Code(s): J18.9 - Pneumonia, unspecified organism Status: Acute (4) Hypoxia: Code(s): R09.02 - Hypoxemia Status: Acute (5) Elevated troponin: Code(s): R79.89 - Other specified abnormal findings of blood chemistry Status: Acute (6) Acute hypoxemic respiratory failure: Code(s): J96.01 - Acute respiratory failure with hypoxia Status: Acute (7) Lumbar discitis: Code(s): M46.46 - Discitis, unspecified, lumbar region Status: Acute (8) Afib: Code(s): I48.91 - Unspecified atrial fibrillation Status: Acute Plan ?Patient is a 78-year-old male presents to the emergency department accompanied by significant other for feeling sick .? Patient states that he is having recurrent nausea when asked what he means by sick.? Patient denies vomiting, diarrhea.? Patient admits to no bowel movements for the past 2 days and has a history of constipation for which she takes stool softeners.? Patient is coming from the rehabilitation center noting that he was admitted at [facility] for an infection in his back and is on IV antibiotics via PICC line in his right upper extremity and has been taking these as prescribed and is supposed to be on them until April 19.?? Paroxysmal atrial fibrillation his EKG showed right bundle-branch block, no prior EKG for comparison, Continue amiodarone 200 mg daily Discontinue eliquis 5 mg b.i.d. p.o. because of her thrombocytopenia Number diskitis CT chest abdomen pelvis with contrast was done found to have diskitis at L4-L5. nd IV daptomycin will be continued nd IV daptomycin will be continued Patient has low-grade fever, 99.9 tachycardia tachypnea, repeated CBC BMP blood culture today 03/27 Acute respiratory failure with hypercapnia Dependent atelectasis in the bilateral lower lobes. No other acute cardiopulmonary disease. CT with contrast does not show PE Possible due to new pneumonia Start DuoNeb scheduled albuterol nebulizer as needed Start CPAP respiratory therapist Elevated troponin could be secondary to hypoxia, dehydration, or ACS. initial troponin is borderline elevated -0.04 and a repeat was 0.06, Patient will be admitted for for a cardiac evaluation Aspirin 325 mg once, continue aspirin 81 mg daily p.o. Follow-up echocardiogram Telemetry monitoring Consult red lead burner for evaluation treatment Sepsis, multifocal pneumonia: Suspecting hospital-acquired pneumonia versus aspiration pneumonia Patient had a fever 102.5 yesterday, leukopenia 2.7, tachycardia tachypnea, meeting criteria of sepsis X-ray showed bilateral base pneumonia, suspecting hospital-acquired pneumonia given recent hospitalization versus aspiration pneumonia speech evaluation Patient is on daptomycin, and cefepime Now patient has no fever Blood culture grows Serratia marcescens Enterobacter hormaechei urine culture pending Continue current antibiotics Removed left arm picc line, will place a new line for daptomycin at discharge repeat BCX today Pancytopenia Patient has chronic anemia, although hemoglobin does not drop significantly, the leukopenia and thrombocytopenia have developed during hospitalization Possible due to sepsis Follow-up CBC, blood smear, reticulocyte, guaiac, ferritin, iron panel, Consult heme oncologist for evaluation treatment Subjective Date/time seen: 03/29/23 08:21 Interval history: Patient has been afebrile over 24 hours, blood culture grows Gram-negative bacilli, output of spending urinalysis pending. Pulse ox 92-97 on room air. Labs reviewed, pancytopenia, Exam Narrative: GENERAL: Pleasant, in no acute
[2023-03-29 08:52] LABS: Immature Reticulocyte Fraction 11.3 % (3.0-15.9); Reticulocyte Hemoglobin Conten 21.6 pg (28.2-35.7); Reticulocyte Percent 1.31 % (0.7-4.3); Reticulocytes Absolute 0.04 M/mm3 (0.02-0.1)
[2023-03-29] MEDS: SODIUM CHLORIDE 0.9% IV 1,000 ML 125 ML IV CONT ×3 (09:41→22:03)
[2023-03-29] MEDS: DAPTOmycin 500 MG in SODIUM CHLORIDE 0.9% IV 50 ML 100 MG IVPB (09:41)
[2023-03-29] MEDS: LIDOCAINE 5% PATCH 1 PATCH TOPICAL (09:44)
[2023-03-29] MEDS: METOPROLOL SUCCINATE EXT REL 25 MG TABCR PO (09:44)
[2023-03-29] MEDS: AMIODARONE HCL 200 MG TABLET PO (09:44)
[2023-03-29] MEDS: SPIRONOLACTONE 25 MG TABLET PO (09:45)
[2023-03-29] MEDS: PANTOPRAZOLE 40 MG TABLET PO ×2 (09:45→20:09)
[2023-03-29] MEDS: SACUBITRIL/VALSARTAN 49-51 MG TABLET 1 TABLET PO ×2 (09:45→20:09)
[2023-03-29] MEDS: NYSTATIN 100,000 UNITS/ML SUSP 5 ML ORAL.SUSP PO ×4 (09:45→20:09)
[2023-03-29] MEDS: MICONAZOLE NITRATE 2% CREAM 30 GM TUBE 1 APPLIC TOPICAL ×2 (09:45→20:09)
[2023-03-29] MEDS: SENNOSIDES 8.6 MG TABLET PO ×2 (09:45→17:35)
[2023-03-29] MEDS: polyethylene glycoL 3350 17 GM POWD.PACK PO (09:46)
--- NOTE | 2023-03-29 10:22 | PDONCCN ---
HPI - Date of Consult Date/Time: 03/29/23 12:12 <Emmanuel Osborne - 03/29/23 12:13> 03/29/23 10:22 <Jamaica Cano - 03/29/23 10:30> Requesting Physician: Opal Calzada MD <Emmanuel Osborne - 03/29/23 12:13> Opal Calzada MD <Jamaica Cano - 03/29/23 10:30> Primary Care Provider: PHYSICIAN NOT ON STAFF <Emmanuel Osborne - 03/29/23 12:13> PHYSICIAN NOT ON STAFF <Jamaica Cano - 03/29/23 10:30> - Consult Narrative Reason for consult: Pancytopenia <Jamaica Cano - 03/29/23 10:30> Narrative: Baldemar Vora is a 78 year old male <Emmanuel Osborne - 03/29/23 12:13> Baldemar Vora is a 78 year old male with a past medical history of atrial fibrillation, HF, GERD, HTN, constipation, who was recently admitted [facility]. He was having intense back pain and was unable to move. He was found to have lumbar diskitis. He was discharged to [place] [facility]hab with a PICC line receiving IV daptomycin. He states something was also wrong with his heart (found to be in Afib RVR). He reported to the hospital feeling sick and reports some nausea. He doesn't seem to be a very good historian on timeline. He developed a fever and blood cultures were drawn that are growing gram neg. He also reports history of some chest pain and has had elevated troponin. We are consulted for pancytopenia. He reports always having low platelets and bleeding easy. He does not recall any history of anemia or low WBC count. He reports being due for a colonoscopy in the summer and past scopes were negative. He did have blood stools when he was admitted to [facility] but feels like that was because of the antibiotics he was on. He denies a smoking or alcohol history. Denies any personal history of cancer. He has a family history of lung, breast, and lymphoma. He reports fatigue and a cough today with sputum production. Labs today notable for WBC 2.4, Hgb 8.9, Hct 30, Plt 56 <Jamaica Cano - 03/29/23 10:49> Review of Systems - Review of Systems All systems reviewed & are unremarkable except as noted in HPI and bel <Kurtis Canone - 03/29/23 10:49> - Neurologic Reports hearing normal, Denies abnormal speech <Kurtis Canone - 03/29/23 10:30> [facility] Medical History: Medical History (Last Updated 03/27/23 @ 12:56 by Radhames Polanoc MD) HFrEF (heart failure with reduced ejection fraction) HTN (hypertension) Lumbar discitis <[place],Emmanueldaniel Lopez - 03/29/23 12:13> Medical History (Last Updated 03/27/23 @ 12:56 by Radhames Polanco MD) HFrEF (heart failure with reduced ejection fraction) HTN (hypertension) Lumbar discitis <Kurtis Canone - 03/29/23 10:30> Family History: Family History (Last Updated 03/27/23 @ 00:18 by Mary Love RN) Sibling Lymphoma Mother TIA (transient ischemic attack) Breast cancer Father Cancer <IndiaNoelEmmanueldaniel Loepz - 03/29/23 12:13> Family History (Last Updated 03/27/23 @ 00:18 by Mary Love RN) Sibling Lymphoma Mother TIA (transient ischemic attack) Breast cancer Father Cancer <Kurtis Canone - 03/29/23 10:30> - Social History Social History: Social History (Last Reviewed 03/19/23 @ 11:39 by Olga Chaney MD) Alcohol Use: Alcohol intake: never Substance Use: Substance use: never Substance use type: does not use Others: Spiritual care concerns: No Smoking Status: Smoking status: Never smoker Social Determinants of Health: Do You Feel Safe in your Home?: Yes Has the Lack of Transportation Kept You From Medical Appointments or From Getting Medications?: No Within the Past 12 Months, Were You Worried Whether Your Food Would Run Out Before You Got Money to Buy More?: Never True What is Your Housing Situation Today?: I Have Housing Are You Worried That in the Next 2 Months, You May Not Have Your Own Housing
[2023-03-29 12:27] LABS: Iron 28 ug/dL (49-181)
[2023-03-29 12:37] LABS: Percent Iron Saturation 16 % (20-50)
[2023-03-29 13:02] LABS: Folic Acid 9.5 ng/mL (2.76->20)
--- NOTE | 2023-03-29 14:16 | PCSTNOTE ---
Please refer to the Bedside Swallow Evaluation in the EMR. Please note, silent aspiration cannot be ruled out at bedside.
[2023-03-29] MEDS: guaiFENesin/DEXTROMETHORPHAN 10 ML UDC PO ×3 (16:23→23:58)
[2023-03-29 16:58] LABS: Eosinophils Absolute Auto 0.1 K/mm3 (0-0.3); Eosinophils Percent Auto 5.1 % (0-4.4); Hematocrit 33.5 % (42.0-52.0); Immature Granulocyte Absolute 0.01 K/mm3 (0.00-0.031); Immature Granulocyte Percent A 0.5 % (0-0.5); Lymphocytes Absolute Auto 0.32 K/mm3 (0.9-3.2); Lymphocytes Percent Auto 16.4 % (18.3-44.2); Mean Corpuscular HGB Conc 26.9 g/dl (32-36); Mean Corpuscular Hemoglobin 26.8 pg (26-34); Mean Corpuscular Volume 99.7 fl (80-100); Mean Platelet Volume 10.5 fl (7.4-10.4); Monocytes Absolute Auto 0.3 K/mm3 (0.1-0.6); Monocytes Percent Auto 16.9 % (2.6-8.5); Neutrophils Absolute Auto 1.2 K/mm3 (1.3-6.7); Neutrophils Percent Auto 60.1 % (45.5-73.1); Platelet Count Result 50 k/mm3 (150-375); Red Blood Count 3.36 M/mm3 (4.6-6.20); Red Cell Distribution Width 14.9 % (11.5-14.5)
[2023-03-29 17:08] LABS: Anion Gap 3 mmol/L (8-16); Blood Urea Nitrogen 15 mg/dL (9-20); Calcium 7.8 mg/dL (8.4-10.2); Carbon Dioxide 25 mmol/L (22-30); Chloride 106 mmol/L (98-107); Estimated CRCL calculation 77 ml/min; Estimated Glomerular Filt Rate > 60; Glucose 108 mg/dL (65-110); Potassium 3.9 mmol/L (3.4-5.0); Sodium 134 mmol/L (137-145)
[2023-03-29] MEDS: oxyCODONE HCL (*CRX) 5 MG TAB IR PO (20:09)
[2023-03-29] MEDS: ACETAMINOPHEN 325 MG TABLET 650 MG PO (23:58)
[2023-03-29] MEDS: diphenhydrAMINE HCl CAP 25 MG CAPSULE 50 MG PO (23:59)
[2023-03-30] VITALS (19 sets, daily range): BP systolic 134–147; BP diastolic 68–85; PULSE 59–81; RESP 12–22; TEMP 36.6–36.8; O2SAT 93–100
[2023-03-30] MEDS: IPRATROPIUM 0.5 MG/ALBUTEROL SULFATE 2.5 MG AMPUL.NEB 3 ML INHALATION ×3 (02:17→21:30)
[2023-03-30] MEDS: CEFEPIME 2 GM/NS 50 ML 2 GM/50 ML BAG IVPB ×3 (04:03→20:26)
[2023-03-30] MEDS: guaiFENesin/DEXTROMETHORPHAN 10 ML UDC PO (04:05)
[2023-03-30] MEDS: oxyCODONE HCL (*CRX) 5 MG TAB IR PO (04:55)
[2023-03-30 05:45] LABS: Basophils Percent Auto 0.4 % (0.2-1.2); Eosinophils Absolute Auto 0.2 K/mm3 (0-0.3); Eosinophils Percent Auto 7.7 % (0-4.4); Hematocrit 30.2 % (42.0-52.0); Hemoglobin 8.8 g/dL (14.0-18.0); Immature Granulocyte Absolute 0.02 K/mm3 (0.00-0.031); Immature Granulocyte Percent A 0.9 % (0-0.5); Immature Platelet Fraction Pct 3.6 % (0.9-11.2); Lymphocytes Absolute Auto 0.42 K/mm3 (0.9-3.2); Lymphocytes Percent Auto 17.9 % (18.3-44.2); Mean Corpuscular HGB Conc 29.1 g/dl (32-36); Mean Corpuscular Hemoglobin 26.9 pg (26-34); Mean Corpuscular Volume 92.4 fl (80-100); Mean Platelet Volume 10.4 fl (7.4-10.4); Monocytes Absolute Auto 0.3 K/mm3 (0.1-0.6); Monocytes Percent Auto 14.1 % (2.6-8.5); Neutrophils Absolute Auto 1.4 K/mm3 (1.3-6.7); Platelet Count Result 57 k/mm3 (150-375); Red Blood Count 3.27 M/mm3 (4.6-6.20); Red Cell Distribution Width 14.9 % (11.5-14.5); White Blood Count 2.3 K/mm3 (4.5-10.0)
[2023-03-30 05:51] LABS: Anion Gap 1 mmol/L (8-16); Blood Urea Nitrogen 13 mg/dL (9-20); Carbon Dioxide 27 mmol/L (22-30); Chloride 108 mmol/L (98-107); Estimated CRCL calculation 77 ml/min; Estimated Glomerular Filt Rate > 60; Glucose 102 mg/dL (65-110); Potassium 3.6 mmol/L (3.4-5.0); Sodium 136 mmol/L (137-145)
[2023-03-30] MEDS: MICONAZOLE NITRATE 2% CREAM 30 GM TUBE 1 APPLIC TOPICAL ×2 (09:24→20:35)
[2023-03-30] MEDS: DAPTOmycin 500 MG in SODIUM CHLORIDE 0.9% IV 50 ML 100 MG IVPB (09:24)
[2023-03-30] MEDS: AMIODARONE HCL 200 MG TABLET PO (09:24)
[2023-03-30] MEDS: GABAPENTIN 300 MG CAPSULE 600 MG PO ×2 (09:25→12:57)
[2023-03-30] MEDS: PANTOPRAZOLE 40 MG TABLET PO ×2 (09:25→20:33)
[2023-03-30] MEDS: SACUBITRIL/VALSARTAN 49-51 MG TABLET 1 TABLET PO ×2 (09:25→20:33)
[2023-03-30] MEDS: LIDOCAINE 5% PATCH 1 PATCH TOPICAL (09:25)
[2023-03-30] MEDS: NYSTATIN 100,000 UNITS/ML SUSP 5 ML ORAL.SUSP PO ×3 (09:25→20:28)
[2023-03-30] MEDS: SENNOSIDES 8.6 MG TABLET PO (09:25)
[2023-03-30] MEDS: METOPROLOL SUCCINATE EXT REL 25 MG TABCR PO (09:26)
[2023-03-30] MEDS: SPIRONOLACTONE 25 MG TABLET PO (09:26)
[2023-03-30] MEDS: SODIUM CHLORIDE 0.9% IV 1,000 ML 125 ML IV CONT ×2 (09:54→22:01)
[2023-03-30 11:11] LABS: IFOB Positive Control Positive; Immunochemical Fecal Occult Bl Positive (N)
--- NOTE | 2023-03-30 11:20 | PM.IMPN ---
Progress Note: A&P Assessment and Plan (1) Sepsis: Code(s): A41.9 - Sepsis, unspecified organism Status: Acute (2) Hospital-acquired pneumonia: Code(s): J18.9 - Pneumonia, unspecified organism; Y95 - Nosocomial condition Status: Acute (3) Multifocal pneumonia: Code(s): J18.9 - Pneumonia, unspecified organism Status: Acute (4) Hypoxia: Code(s): R09.02 - Hypoxemia Status: Acute (5) Elevated troponin: Code(s): R79.89 - Other specified abnormal findings of blood chemistry Status: Acute (6) Acute hypoxemic respiratory failure: Code(s): J96.01 - Acute respiratory failure with hypoxia Status: Acute (7) Lumbar discitis: Code(s): M46.46 - Discitis, unspecified, lumbar region Status: Acute (8) Afib: Code(s): I48.91 - Unspecified atrial fibrillation Status: Acute Plan Patient is a 78-year-old male presents to the emergency department accompanied by significant other for feeling sick .? Patient states that he is having recurrent nausea when asked what he means by sick.? Patient denies vomiting, diarrhea.? Patient admits to no bowel movements for the past 2 days and has a history of constipation for which she takes stool softeners.? Patient is coming from the rehabilitation center noting that he was admitted at [facility] for an infection in his back and is on IV antibiotics via PICC line in his right upper extremity and has been taking these as prescribed and is supposed to be on them until April 19.?? Paroxysmal atrial fibrillation his EKG showed right bundle-branch block, no prior EKG for comparison, Continue amiodarone 200 mg daily Discontinue eliquis 5 mg b.i.d. p.o. because of her thrombocytopenia Lumbar diskitis CT chest abdomen pelvis with contrast was done found to have diskitis at L4-L5. nd IV daptomycin will be continued nd IV daptomycin will be continued Patient has low-grade fever, 99.9 tachycardia tachypnea, repeated CBC BMP blood culture today 03/27 Acute respiratory failure with hypercapnia Dependent atelectasis in the bilateral lower lobes. No other acute cardiopulmonary disease. CT with contrast does not show PE Possible due to new pneumonia Start DuoNeb scheduled albuterol nebulizer as needed Start CPAP respiratory therapist Elevated troponin could be secondary to hypoxia, dehydration, or ACS. initial troponin is borderline elevated -0.04 and a repeat was 0.06, Patient will be admitted for for a cardiac evaluation Aspirin 325 mg once, continue aspirin 81 mg daily p.o. Follow-up echocardiogram Telemetry monitoring Consult nutrition club ambassador for evaluation treatment Sepsis, multifocal pneumonia: Suspecting hospital-acquired pneumonia versus aspiration pneumonia Patient had a fever 102.5 yesterday, leukopenia 2.7, tachycardia tachypnea, meeting criteria of sepsis X-ray showed bilateral base pneumonia, suspecting hospital-acquired pneumonia given recent hospitalization versus aspiration pneumonia speech evaluation Patient is on daptomycin, and cefepime Now patient has no fever Blood culture grows Serratia marcescens; Enterobacter hormaechei urine culture pending Continue current antibiotics Removed left arm picc line, will place a new line for daptomycin at discharge repeat BCX today Pancytopenia Patient has chronic anemia, although hemoglobin does not drop significantly, the leukopenia and thrombocytopenia have developed during hospitalization Possible due to sepsis Follow-up CBC, blood smear, reticulocyte, guaiac, ferritin, iron panel, Consult heme oncologist for evaluation treatment 03/30/23: Guaiac + stools: Type and screen; GI consult; Holding Apixaban Continue Abx: Daptomycin, Cefepime Time Spent With Patient Time with patient: 25 - 35 minutes Subjective Date/time seen: 03/30/23 11:20 Interval history: Patient has been afebrile over 24 hours Blood culture grows Gram
[2023-03-30 15:19] LABS: Glucose Point of Care 122 mg/dl (65-105)
[2023-03-30 15:28] LABS: Base Excess ABG 2.2 mEq/l (+/-2.0); Fractional Inspired Oxygen 28 %; HCO3 ABG 27.1 mEq/l (22.0-26.0); Oxygen Content ABG 14.1 %vol (16.0-22.0); Oxygen Saturation ABG 96.8 % (95.0-100.0); Oxyhemoglobin 95.6 % THb (90.0-100.0); PCO2 ABG 43.6 mmHg (35.0-45.0); PO2 ABG 88.2 mmHg (80.0-100.0); PO2 FiO2 Ratio Arterial Blood 3.15 %; Total Hemoglobin 10.4 g/dL (12.0-18.0); pH ABG 7.411 (7.350-7.450)
[2023-03-30 15:30] LABS: Device NASAL CANNULA; Site Drawn RIGHT BRACHIAL
[2023-03-30 16:01] LABS: Ammonia < 9 umol/L (9-30)
[2023-03-30] MEDS: IRON SUCROSE COMPLEX 500 MG in SODIUM CHLORIDE 0.9% IV 250 ML 79 MG IVPB (19:03)
--- NOTE | 2023-03-30 22:21 | PC.NURSE ---
2129. PT DROWSY BUT WILL WAKE UP AND ANSWER QUESTIONS APPROPRIATELY. SENT TO CT PER STRETCHER ON 3L NC SATURATIONS IN 95-98%. BACK TO ROOM AND RESPIRATORY IN WITH PATIENT. NEURO CHECKS WNL.
[2023-03-31] VITALS (22 sets, daily range): BP systolic 142–150; BP diastolic 68–72; PULSE 62–88; RESP 12–18; TEMP 36.3–37.1; O2SAT 94–100
[2023-03-31] MEDS: IPRATROPIUM 0.5 MG/ALBUTEROL SULFATE 2.5 MG AMPUL.NEB 3 ML INHALATION ×4 (02:57→20:21)
[2023-03-31] MEDS: CEFEPIME 2 GM/NS 50 ML 2 GM/50 ML BAG IVPB ×3 (04:13→20:54)
[2023-03-31 06:03] LABS: Alanine Aminotransferase 29 U/L (6-50); Albumin Level 2.6 g/dL (3.5-5.1); Alkaline Phosphatase 79 U/L (38-126); Anion Gap 3 mmol/L (8-16); Aspartate Amino Transferase 33 U/L (17-59); Bilirubin,Total 0.4 mg/dL (0.2-1.3); Blood Urea Nitrogen 9 mg/dL (9-20); Calcium 8.4 mg/dL (8.4-10.2); Carbon Dioxide 31 mmol/L (22-30); Chloride 104 mmol/L (98-107); Estimated CRCL calculation 75 ml/min; Estimated Glomerular Filt Rate > 60; Glucose 97 mg/dL (65-110); Potassium 3.5 mmol/L (3.4-5.0); Sodium 138 mmol/L (137-145)
[2023-03-31 06:07] LABS: Basophils Percent Auto 1.1 % (0.2-1.2); Eosinophils Absolute Auto 0.2 K/mm3 (0-0.3); Eosinophils Percent Auto 6.1 % (0-4.4); Hematocrit 33.1 % (42.0-52.0); Hemoglobin 9.8 g/dL (14.0-18.0); Immature Granulocyte Absolute 0.08 K/mm3 (0.00-0.031); Immature Platelet Fraction Pct 3.9 % (0.9-11.2); Lymphocytes Absolute Auto 0.54 K/mm3 (0.9-3.2); Lymphocytes Percent Auto 20.5 % (18.3-44.2); Mean Corpuscular HGB Conc 29.6 g/dl (32-36); Mean Corpuscular Hemoglobin 27.1 pg (26-34); Mean Corpuscular Volume 91.4 fl (80-100); Mean Platelet Volume 10.6 fl (7.4-10.4); Monocytes Absolute Auto 0.3 K/mm3 (0.1-0.6); Monocytes Percent Auto 10.6 % (2.6-8.5); Neutrophils Absolute Auto 1.6 K/mm3 (1.3-6.7); Neutrophils Percent Auto 58.7 % (45.5-73.1); Platelet Count Result 80 k/mm3 (150-375); Red Blood Count 3.62 M/mm3 (4.6-6.20); Red Cell Distribution Width 15.1 % (11.5-14.5); White Blood Count 2.6 K/mm3 (4.5-10.0)
[2023-03-31 07:34] LABS: Anisocytosis 1+ (NORMAL); Hypochromasia 1+ (NORMAL); Platelet Estimate Decreased (Adequate); Schistocytes None Seen (NORMAL)
[2023-03-31] MEDS: AMIODARONE HCL 200 MG TABLET PO (08:56)
[2023-03-31] MEDS: NYSTATIN 100,000 UNITS/ML SUSP 5 ML ORAL.SUSP PO ×4 (08:56→20:58)
[2023-03-31] MEDS: SENNOSIDES 8.6 MG TABLET PO ×2 (08:56→17:42)
[2023-03-31] MEDS: SPIRONOLACTONE 25 MG TABLET PO (08:56)
[2023-03-31] MEDS: PANTOPRAZOLE 40 MG TABLET PO ×2 (08:57→20:54)
[2023-03-31] MEDS: METOPROLOL SUCCINATE EXT REL 25 MG TABCR PO (08:57)
[2023-03-31] MEDS: SACUBITRIL/VALSARTAN 49-51 MG TABLET 1 TABLET PO ×2 (08:57→20:54)
[2023-03-31] MEDS: MICONAZOLE NITRATE 2% CREAM 30 GM TUBE 1 APPLIC TOPICAL ×2 (08:58→20:56)
[2023-03-31] MEDS: LIDOCAINE 5% PATCH 1 PATCH TOPICAL (08:58)
[2023-03-31] MEDS: DAPTOmycin 500 MG in SODIUM CHLORIDE 0.9% IV 50 ML 100 MG IVPB (09:04)
--- NOTE | 2023-03-31 10:27 | PM.IMPN ---
Progress Note: A&P Assessment and Plan (1) Sepsis: Code(s): A41.9 - Sepsis, unspecified organism Status: Acute Assessment and Plan: on Daptomycin till 04/20/23 Repeat blood culture May need to be transferred to [facility] for full ID support (2) Hospital-acquired pneumonia: Code(s): J18.9 - Pneumonia, unspecified organism; Y95 - Nosocomial condition Status: Acute Assessment and Plan: Wean oxygen; s/p Cefepime (3) Multifocal pneumonia: Code(s): J18.9 - Pneumonia, unspecified organism Status: Acute Assessment and Plan: On Cefepime and Daptomycin (4) Hypoxia: Code(s): R09.02 - Hypoxemia Status: Acute Assessment and Plan: Likely 2/2 Pneumonia Incentive spirometry; wean oxygen (5) Elevated troponin: Code(s): R79.89 - Other specified abnormal findings of blood chemistry Status: Acute Assessment and Plan: Probably 2/2 demand ischemia Hx of CAD (6) Acute hypoxemic respiratory failure: Code(s): J96.01 - Acute respiratory failure with hypoxia Status: Acute Assessment and Plan: Likely multifactorial; Pneumonia, CHFrEF (7) Lumbar discitis: Code(s): M46.46 - Discitis, unspecified, lumbar region Status: Acute Assessment and Plan: on Daptomycin, Cefepime (8) Afib: Code(s): I48.91 - Unspecified atrial fibrillation Status: Acute Assessment and Plan: on Amiodarone, Eliquis was held due to thrombocytopenia Plan Baldemar Vora is a 78 year-old male who presented to [facility] on 03/02/23 with 1 day history of severe atraumatic axial back pain. CT lumbar spine demonstrated mild to moderate degenerative changes. Anterolisthesis of L4 on L5. Calcified disc herniation at L1-2 likely resulting in moderate to severe canal stenosis. His pain improved after Toradol and lidocaine patch and he has no neurological deficits on exam. Work up revealed mildly elevated inflammatory markers-- ESR of 30, CRP of 14, WBC of 15. Blood cultures drawn showing MSSA- started on IV antibiotics. Infectious disease consulted Patient developed on acute hypoxic respiratory failure. Required intubation on 03/04/23. He developed A-fib, Cardiology consulted. TTE on 03/04 showed severely concentric hypertrophy, reduced systolic function with EF of 20-25%, global hypokinesis. No vegetations noted. He was cardioverted 1x and went into NSR. He was extubated on 03/08 to high flow and started on Amiodarone PO. Antibiotics narrowed to daptomycin. Daptomycin 500mg with end of treatment 04/20/23. Plan for PICC line placement 03/18/23. Was weaned to room air. Patient initiated on GDMT for HFrEF. Cardiac cath for ischemic work up completed on 03/13/23. CAD of proximal LAD 30-40%, second diagonal branch 70%, and third diagonal branch 50%. Dermatology consulted on 03/12/23 for worsening rash. Likely morbilliform drug eruption; unclear trigger (oxacillin vs. Cefazolin) w/ suspected secondary contact dermatitis (topicals washes, adhesives). Developed melena, GI consulted. EGD was done on 03/15. Started on PPI. PT/OT recommended inpatient rehab.] Assessment Plan Paroxysmal atrial fibrillation his EKG showed right bundle-branch block, no prior EKG for comparison, Continue amiodarone 200 mg daily Discontinue eliquis 5 mg b.i.d. p.o. because of her thrombocytopenia Lumbar diskitis CT chest abdomen pelvis with contrast was done found to have diskitis at L4-L5. nd IV daptomycin will be continued nd IV daptomycin will be continued 03/31/23: On Daptomycin; Will perform Procalcitonin Acute respiratory failure with hypercapnia Dependent atelectasis in the bilateral lower lobes. No other acute cardiopulmonary disease. CT with contrast does not show PE Possible due to new pneumonia Start DuoNeb scheduled albuterol nebulizer as needed Start CPAP respiratory therapist 03/31/23: Pulmonology on board Elevated troponin could be secondary to hypoxi
[2023-03-31] MEDS: SODIUM CHLORIDE 0.9% IV 1,000 ML 125 ML IV CONT ×2 (10:30→19:01)
[2023-03-31 10:53] LABS: Procalcitonin 1.4 ng/mL
--- NOTE | 2023-03-31 11:08 | PM.CNPUL ---
Assessment and Plan Assessment and plan (1) Acute hypoxemic respiratory failure: Code(s): J96.01 - Acute respiratory failure with hypoxia Status: Acute Assessment and Plan: Our 78-year-old patient, with no previous history of lung disease, was previously admitted to another facility due to back pain and has been undergoing prolonged antibiotic treatment. The exact source of the infection remains undetermined. During his hospital stay, arterial blood gases revealed mild hypercapnic respiratory failure, which was not observed in subsequent tests. Acute changes in mental status, potentially related to his opioid medication for back pain, could explain the initial hypercapnic failure observed in blood gases drawn three days ago. Chest imaging has not identified any signs of lower respiratory tract infection. The patient has been essentially bedridden due to severe back pain, which likely caused the bilateral lower lobe atelectasis observed in chest imaging, including a CT scan, and may explain the hypoxemia. Based on a witnessed apneic episode, the patient may have obstructive sleep apnea, although he has never undergone a sleep study. The patient is currently being treated with antibiotics for newly detected bacteremia, which appears to be the primary concern at this stage. Pancytopenia with relative eosinophilia has been noted and Hematology Services have evaluated him for possible sepsis. He has also been reviewed by Cardiology Services due to a history of congestive heart failure and atrial fibrillation. The case has been discussed at length with the patient's hospitalist. From a respiratory perspective, I see no evidence of lower respiratory tract infection. A repeat chest x-ray will be performed. The patient will continue with BiPAP support using lower pressures for potential sleep disordered breathing. Further testing for sleep disordered breathing will be required on an outpatient basis. We will continue to monitor and collaborate on his care. (2) Bacteremia: Code(s): R78.81 - Bacteremia Status: Acute (3) HFrEF (heart failure with reduced ejection fraction): Code(s): I50.20 - Unspecified systolic (congestive) heart failure Status: Acute (4) Paroxysmal atrial fibrillation: Code(s): I48.0 - Paroxysmal atrial fibrillation Status: Acute (5) Sepsis: Code(s): A41.9 - Sepsis, unspecified organism Status: Acute History of Present Illness History of Present Illness Consult date: 03/31/23 Chief complaint: Elevated Troponin Narrative: We are consulting on a 78-year-old male patient who was admitted five days ago due to general malaise. The patient's recent health history includes a significant admission at [facility] for back pain. The specifics of this hospitalization are unclear, but the patient reported being treated for an infection and a heart condition. It remains uncertain whether the infection was related to his heart or back. Post-treatment, he was discharged to a rehabilitation facility with instructions to continue daptomycin for several weeks and had a PICC line placed. Upon admission to [facility], the patient exhibited no respiratory symptoms. Initial blood tests showed normal white blood cell and platelet counts. He was diagnosed with bacteremia related to Serratia marcescens and Enterobacter Hormaechei, for which he has been receiving treatment with daptomycin and cefepime. Since his admission, pancytopenia has been observed, including low white cell and platelet counts, and hemoglobin levels around 9 grams/liter. The patient has been evaluated by both Hematology and Cardiology Services. Initial chest imaging revealed essentially clear lungs with mild bilateral lower lobe atelectasis and no evidence of infiltrates suggestive of pneumonia. The patient reported being bedridden since his hospital admission due to severe back pain. His symptoms include a m
[2023-03-31 12:06] LABS: Procalcitonin 1.2 ng/mL
[2023-03-31] MEDS: guaiFENesin/DEXTROMETHORPHAN 10 ML UDC PO ×3 (12:10→21:42)
[2023-03-31 12:31] LABS: Glucose Point of Care 118 mg/dl (65-105)
[2023-03-31 14:43] LABS: Erythrocyte Sedimentation Rate 28 mm/hr (0-20)
[2023-03-31 17:04] LABS: Glucose Point of Care 144 mg/dl (65-105)
[2023-03-31] MEDS: KETOROLAC 15 MG/ML VIAL (*BKC) IV PUSH (21:01)
[2023-03-31] MEDS: diphenhydrAMINE HCl CAP 25 MG CAPSULE 50 MG PO (21:42)
[2023-04-01] VITALS (13 sets, daily range): BP systolic 135–162; BP diastolic 70–85; PULSE 62–82; RESP 15–20; TEMP 36.2–37.1; O2SAT 91–98
[2023-04-01] MEDS: IPRATROPIUM 0.5 MG/ALBUTEROL SULFATE 2.5 MG AMPUL.NEB 3 ML INHALATION ×2 (03:10→08:16)
[2023-04-01 03:14] LABS: Methylmalonic Acid 214 nmol/L (87-318)
[2023-04-01] MEDS: SODIUM CHLORIDE 0.9% IV 1,000 ML 125 ML IV CONT ×3 (03:32→21:36)
[2023-04-01] MEDS: CEFEPIME 2 GM/NS 50 ML 2 GM/50 ML BAG IVPB ×2 (03:33→12:27)
[2023-04-01 05:34] LABS: Eosinophils Absolute Auto 0.3 K/mm3 (0-0.3); Eosinophils Percent Auto 9.1 % (0-4.4); Hematocrit 30.7 % (42.0-52.0); Immature Granulocyte Absolute 0.12 K/mm3 (0.00-0.031); Immature Granulocyte Percent A 4.2 % (0-0.5); Immature Platelet Fraction Pct 3.5 % (0.9-11.2); Lymphocytes Absolute Auto 0.66 K/mm3 (0.9-3.2); Mean Corpuscular HGB Conc 29.3 g/dl (32-36); Mean Corpuscular Hemoglobin 26.8 pg (26-34); Mean Corpuscular Volume 91.4 fl (80-100); Monocytes Absolute Auto 0.3 K/mm3 (0.1-0.6); Monocytes Percent Auto 10.8 % (2.6-8.5); Neutrophils Absolute Auto 1.5 K/mm3 (1.3-6.7); Neutrophils Percent Auto 51.9 % (45.5-73.1); Platelet Count Result 102 k/mm3 (150-375); Red Blood Count 3.36 M/mm3 (4.6-6.20); Red Cell Distribution Width 14.9 % (11.5-14.5); White Blood Count 2.9 K/mm3 (4.5-10.0)
[2023-04-01] MEDS: KETOROLAC 15 MG/ML VIAL (*BKC) IV PUSH ×2 (05:42→13:58)
[2023-04-01 05:45] LABS: Alanine Aminotransferase 26 U/L (6-50); Albumin Level 2.4 g/dL (3.5-5.1); Alkaline Phosphatase 72 U/L (38-126); Anion Gap -1 mmol/L (8-16); Aspartate Amino Transferase 28 U/L (17-59); Bilirubin,Total 0.4 mg/dL (0.2-1.3); Blood Urea Nitrogen 10 mg/dL (9-20); Carbon Dioxide 34 mmol/L (22-30); Chloride 102 mmol/L (98-107); Estimated CRCL calculation 75 ml/min; Estimated Glomerular Filt Rate > 60; Glucose 102 mg/dL (65-110); Potassium 3.2 mmol/L (3.4-5.0); Sodium 135 mmol/L (137-145)
--- NOTE | 2023-04-01 07:25 | PM.IMPN ---
Progress Note: A&P Assessment and Plan (1) Sepsis: Code(s): A41.9 - Sepsis, unspecified organism Status: Acute Assessment and Plan: on Daptomycin till 04/20/23 Repeat blood culture May need to be transferred to [facility] for full ID support (2) Hospital-acquired pneumonia: Code(s): J18.9 - Pneumonia, unspecified organism; Y95 - Nosocomial condition Status: Acute Assessment and Plan: Wean oxygen; s/p Cefepime (3) Multifocal pneumonia: Code(s): J18.9 - Pneumonia, unspecified organism Status: Acute Assessment and Plan: On Cefepime and Daptomycin (4) Hypoxia: Code(s): R09.02 - Hypoxemia Status: Acute Assessment and Plan: Likely 2/2 Pneumonia Incentive spirometry; wean oxygen (5) Elevated troponin: Code(s): R79.89 - Other specified abnormal findings of blood chemistry Status: Acute Assessment and Plan: Probably 2/2 demand ischemia Hx of CAD (6) Acute hypoxemic respiratory failure: Code(s): J96.01 - Acute respiratory failure with hypoxia Status: Acute Assessment and Plan: Likely multifactorial; Pneumonia, CHFrEF (7) Lumbar discitis: Code(s): M46.46 - Discitis, unspecified, lumbar region Status: Acute Assessment and Plan: on Daptomycin, Cefepime (8) Afib: Code(s): I48.91 - Unspecified atrial fibrillation Status: Acute Assessment and Plan: on Amiodarone, Eliquis was held due to thrombocytopenia Plan Paroxysmal atrial fibrillation his EKG showed right bundle-branch block, no prior EKG for comparison, Continue amiodarone 200 mg daily Discontinue eliquis 5 mg b.i.d. p.o. because of her thrombocytopenia Lumbar diskitis CT chest abdomen pelvis with contrast was done ?found to have diskitis at L4-L5.? nd IV daptomycin will be continued nd IV daptomycin will be continued 03/31/23: On Daptomycin; Will perform Procalcitonin Acute respiratory failure with hypercapnia Dependent atelectasis in the bilateral lower lobes. No other acute cardiopulmonary disease. CT with contrast does not show PE Possible due to new pneumonia Start DuoNeb scheduled albuterol nebulizer as needed Start CPAP respiratory therapist 03/31/23: Pulmonology on board Elevated troponin could be secondary to hypoxia, dehydration, or ACS. initial troponin is borderline elevated -0.04 and a repeat was 0.06, Patient will be admitted for for a cardiac evaluation Aspirin 325 mg once, continue aspirin 81 mg daily p.o. Follow-up echocardiogram Telemetry monitoring Consult cushion spring assembler for evaluation treatment 03/31/23: Maybe sepsis related Sepsis, multifocal pneumonia:? Suspecting hospital-acquired pneumonia versus aspiration pneumonia Patient had a fever 102.5 yesterday, leukopenia 2.7, tachycardia tachypnea, meeting criteria of sepsis X-ray showed bilateral base pneumonia, suspecting hospital-acquired pneumonia given recent hospitalization versus aspiration pneumonia ?speech evaluation Patient is on daptomycin, and cefepime Now patient has no fever Blood culture grows??Serratia marcescens;?Enterobacter hormaechei urine culture pending Continue current antibiotics Removed left arm picc line,? will place a new line for daptomycin at discharge 03/31/23: Repeat BCX today;?May need to be transferred back to [facility]?if failure to show upward improvement; may need full ID coverage Pancytopenia Patient has chronic anemia, although hemoglobin does not drop significantly, the leukopenia and thrombocytopenia have developed during hospitalization Possible due to sepsis Follow-up CBC, blood smear, reticulocyte, guaiac, ferritin, iron panel, Consult heme oncologist for evaluation treatment 03/31/23: Will continue Abx; perform Blood cultures Per Hematology/Oncology: Pancytopenia- Patients pancytopenia is likely secondary to sepsis, infection, with possibility of drug-induced thrombocytopenia due to antibiotic use. Dapto and cefepime have
[2023-04-01] MEDS: SACUBITRIL/VALSARTAN 49-51 MG TABLET 1 TABLET PO ×2 (09:03→20:32)
[2023-04-01] MEDS: AMIODARONE HCL 200 MG TABLET PO (09:03)
[2023-04-01] MEDS: MICONAZOLE NITRATE 2% CREAM 30 GM TUBE 1 APPLIC TOPICAL ×2 (09:04→20:33)
[2023-04-01] MEDS: PANTOPRAZOLE 40 MG TABLET PO ×2 (09:04→20:32)
[2023-04-01] MEDS: SPIRONOLACTONE 25 MG TABLET PO (09:04)
[2023-04-01] MEDS: NYSTATIN 100,000 UNITS/ML SUSP 5 ML ORAL.SUSP PO ×4 (09:04→20:32)
[2023-04-01] MEDS: METOPROLOL SUCCINATE EXT REL 25 MG TABCR PO (09:04)
[2023-04-01] MEDS: polyethylene glycoL 3350 17 GM POWD.PACK PO (09:04)
[2023-04-01] MEDS: LIDOCAINE 5% PATCH 1 PATCH TOPICAL (09:04)
[2023-04-01] MEDS: SENNOSIDES 8.6 MG TABLET PO (09:04)
[2023-04-01] MEDS: DAPTOmycin 500 MG in SODIUM CHLORIDE 0.9% IV 50 ML 100 MG IVPB (09:09)
--- NOTE | 2023-04-01 09:09 | PM.PNPUL ---
Progress Note: A&P Assessment and Plan (1) Acute hypoxemic respiratory failure: Code(s): J96.01 - Acute respiratory failure with hypoxia Status: Acute Assessment and Plan: Our 78-year-old patient, with no previous history of lung disease, was previously admitted to another facility due to back pain and has been undergoing prolonged antibiotic treatment. The exact source of the infection remains undetermined. During his hospital stay, arterial blood gases revealed mild hypercapnic respiratory failure, which was not observed in subsequent tests. Acute changes in mental status, potentially related to his opioid medication for back pain, could explain the initial hypercapnic failure observed in blood gases drawn three days ago. Chest imaging has not identified any signs of lower respiratory tract infection. The patient has been essentially bedridden due to severe back pain, which likely caused the bilateral lower lobe atelectasis observed in chest imaging, including a CT scan, and may explain the hypoxemia. Based on a witnessed apneic episode, the patient may have obstructive sleep apnea, although he has never undergone a sleep study. The patient is currently being treated with antibiotics for newly detected bacteremia, which appears to be the primary concern at this stage. Pancytopenia with relative eosinophilia has been noted and Hematology Services have evaluated him for possible sepsis. He has also been reviewed by Cardiology Services due to a history of congestive heart failure and atrial fibrillation.? The case has been discussed at length with the patient's hospitalist. 03/31/23: Plan: From a respiratory perspective, I see no evidence of lower respiratory tract infection. A repeat chest x-ray will be performed. The patient will continue with BiPAP support using lower pressures for potential sleep disordered breathing. Further testing for sleep disordered breathing will be required on an outpatient basis. We will continue to monitor and collaborate on his care. 04/01/23: Patient denies any respiratory symptoms. No fever, chills, rigors, hemoptysis. He has some postnasal drip with minimal cough. He has no shortness of breath when walking across the room. When I enter the room he was on 3 L nasal cannula saturations 98%. I decreased him to room air and his saturations after 15 minutes were 92%. White blood cell count 2.9, platelets 102, creatinine 0.8. Plan: Patient on no oxygen prior to this admission and currently I have decreased him to room air. I will check an overnight oximetry on room air. He states the BiPAP is not very comfortable for him and he sleeps better without it. At this time I will discontinue the BiPAP. He will need an outpatient sleep study. No history of asthma, COPD or reactive airways disease. I will discontinue DuoNebs. Discussed with Dr. Vasquez, will follow with you. Subjective Date/time seen: 04/01/23 09:09 Interval history: Consult date: 03/31/23 Chief complaint: Elevated Troponin Narrative: We are consulting on a 78-year-old male patient who was admitted five days ago due to general malaise. The patient's recent health history includes a significant admission at [facility] for back pain. The specifics of this hospitalization are unclear, but the patient reported being treated for an infection and a heart condition. It remains uncertain whether the infection was related to his heart or back. Post-treatment, he was discharged to a rehabilitation facility with instructions to continue daptomycin for several weeks and had a PICC line placed. Upon admission to [facility], the patient exhibited no respiratory symptoms. Initial blood tests showed normal white blood cell and platelet counts. He was diagnosed with bacteremia related to Serratia marcescens and Enterobacter Hormaechei, for which he has been receiving treatment with daptomycin and cefepime. Since his admission, panc
--- NOTE | 2023-04-01 11:41 | PC.NURSE ---
[facility] transfer center called this morning to update this nurse on patient's status for bed placement. Patient has been accepted by [facility] and currently on a waitlist for a bed, hopeful for this week. Transfer center will call daily to get updates on patient and can be reached at [phone].
--- NOTE | 2023-04-01 12:32 | WPDONCPN ---
Progress Note: A/P (1) Pancytopenia Code(s): D61.818 - Other pancytopenia Status: Acute <Emmanuel Osborne - 04/01/23 18:16> (1) Pancytopenia Code(s): D61.818 - Other pancytopenia Status: Acute <Jamaica Cano - 04/01/23 12:43> - Additional Plan Attending note. Patient seen and examined Pancytopenia secondary to sepsis infection/pneumonia and drug-induced. Labs noted. Platelet count and WBC count has improved. Hemoglobin stable. No need for blood transfusion at this time. Emmanuel Osborne MD <Emmanuel Osborne - 04/01/23 18:16> Baldemar Vora is a 78 year old male with a past medical history of atrial fibrillation, HF, GERD, HTN, constipation, who was recently admitted [facility]. He was having intense back pain and was unable to move. He was found to have lumbar diskitis. He was discharged to [facility] with a PICC line receiving IV daptomycin. He states something was also wrong with his heart (found to be in Afib RVR). He reported to the hospital feeling sick and reports some nausea. He doesn't seem to be a very good historian on timeline. He developed a fever and blood cultures were drawn that are growing gram neg. He also reports history of some chest pain and has had elevated troponin. We are consulted for pancytopenia. He reports always having low platelets and bleeding easy. He does not recall any history of anemia or low WBC count. He reports being due for a colonoscopy in the summer and past scopes were negative. He did have blood stools when he was admitted to [facility] but feels like that was because of the antibiotics he was on. He denies a smoking or alcohol history. Denies any personal history of cancer. He has a family history of lung, breast, and lymphoma. He reports fatigue and a cough today with sputum production. Labs today notable for WBC 2.4, Hgb 8.9, Hct 30, Plt 56,000 03/29/23 Pancytopenia- Patients pancytopenia is likely secondary to sepsis, infection, with possibility of drug-induced thrombocytopenia due to antibiotic use. Dapto and cefepime have bone marrow suppression effects. Nutritional deficiencies could also be a cause. I /will draw iron studies, ferritin, B12, GLENROY, plt antibody, and peripheral smear for review. No need for platelet transfusion at this time until Plt <10 or Hgb <7. Hope to expect recovery of platelet count with improvement in the infection. No need for bone marrow biopsy at this time. Continue supportive care measures. Consider repeating blood cultures and pulling PICC line as it could also be a source of infection. 04/01/23 Pancytopenia- Labs today are notable for stable WBC at 2.6, Hgb stable at 9.8, Plt increased to 80,0000. Peripheral smear from 03/29 showing absolute lymphopenia with normocytic normochromic anemia and thrombocytopenia. There are tear drops cells present as well. This could be due to a underlying bone marrow disorder like myelofibrosis. He may need a bone marrow biopsy outpatient if pancytopenia continues. Plt antibody test is still pending. There has been an occult stool positive and can also be the source of anemia. Consider GI consult for their input. We can follow up in office for further recommendations. <Jamaica Cano - 04/01/23 12:40> - Time Spent With Patient Total time spent is greater than 50% in coordination of care (as documented) at patient's floor/unit and/or counseling patient: <Emmanuel Osborne - 04/01/23 18:16> Total time spent is greater than 50% in coordination of care (as documented) at patient's floor/unit and/or counseling patient: <Jamaica Cano - 04/01/23 12:34> 15 - 25 minutes <Jamaica Cano - 04/01/23 12:34> Subjective Interval history: Patient is overall feeling better. He reports back pain and is taking pain medication. He is having so much back pain that he does not want to sit up in the chair or walk. He is now on oxygen. His PICC was removed. <Jamaica Cano - 04/01/23 12:34> Review of Systems - Review
[2023-04-01] MEDS: guaiFENesin/DEXTROMETHORPHAN 10 ML UDC PO ×2 (13:58→20:32)
[2023-04-01] MEDS: levoFLOXacin 750 MG TABLET PO (20:33)
[2023-04-01] MEDS: ONDANSETRON HCL ODT 4 MG TABLET PO (23:49)
[2023-04-02] VITALS (13 sets, daily range): BP systolic 161–170; BP diastolic 79–85; PULSE 58–74; RESP 16–20; TEMP 36.6–36.8; O2SAT 90–98
--- NOTE | 2023-04-02 01:03 | PC.NURSE ---
Call to RT r/t continuous pulse ox alarm. O2 saturation dips down to the 70's. Patient rebounds quickly to the 80's and 90's. O2 obtained via vitals cart for comparison. RT to assess and consider modifications to sleep apnea link if needed.
[2023-04-02] MEDS: SIMETHICONE 80 MG TAB.CHEW PO ×2 (03:12→13:00)
[2023-04-02] MEDS: SODIUM CHLORIDE 0.9% IV 1,000 ML 125 ML IV CONT ×3 (05:41→21:55)
[2023-04-02] MEDS: ONDANSETRON HCL ODT 4 MG TABLET PO (05:44)
--- NOTE | 2023-04-02 05:55 | PC.NURSE ---
Repeat call to RT r/t decreased O2 sats; Continuous pulse-ox demonstrates fluctuation as low as 56% and as high as 78% without rebound for 3 minutes; patient placed on 2L NC and rebounded to sats >90%;
--- NOTE | 2023-04-02 07:59 | PM.IMPN ---
Progress Note: A&P Assessment and Plan (1) Sepsis: Code(s): A41.9 - Sepsis, unspecified organism Status: Acute Assessment and Plan: on Daptomycin till 04/20/23 Repeat blood culture May need to be transferred to [facility] for full ID support (2) Hospital-acquired pneumonia: Code(s): J18.9 - Pneumonia, unspecified organism; Y95 - Nosocomial condition Status: Acute Assessment and Plan: Wean oxygen; s/p Cefepime (3) Multifocal pneumonia: Code(s): J18.9 - Pneumonia, unspecified organism Status: Acute Assessment and Plan: On Cefepime and Daptomycin (4) Hypoxia: Code(s): R09.02 - Hypoxemia Status: Acute Assessment and Plan: Likely 2/2 Pneumonia Incentive spirometry; wean oxygen (5) Elevated troponin: Code(s): R79.89 - Other specified abnormal findings of blood chemistry Status: Acute Assessment and Plan: Probably 2/2 demand ischemia Hx of CAD (6) Acute hypoxemic respiratory failure: Code(s): J96.01 - Acute respiratory failure with hypoxia Status: Acute Assessment and Plan: Likely multifactorial; Pneumonia, CHFrEF (7) Lumbar discitis: Code(s): M46.46 - Discitis, unspecified, lumbar region Status: Acute Assessment and Plan: on Daptomycin, Cefepime (8) Afib: Code(s): I48.91 - Unspecified atrial fibrillation Status: Acute Assessment and Plan: on Amiodarone, Eliquis was held due to thrombocytopenia Plan Paroxysmal atrial fibrillation his EKG showed right bundle-branch block, no prior EKG for comparison, Continue amiodarone 200 mg daily Discontinue eliquis 5 mg b.i.d. p.o. because of her thrombocytopenia Lumbar diskitis CT chest abdomen pelvis with contrast was done ?found to have diskitis at L4-L5.? nd IV daptomycin will be continued nd IV daptomycin will be continued 03/31/23: On Daptomycin; Acute respiratory failure with hypercapnia Dependent atelectasis in the bilateral lower lobes. No other acute cardiopulmonary disease. CT with contrast does not show PE Possible due to new pneumonia Start DuoNeb scheduled albuterol nebulizer as needed Start CPAP respiratory therapist 03/31/23: Pulmonology on board Now patient is on 2 L oxygen via nasal cannular Elevated troponin could be secondary to hypoxia, dehydration, or ACS. initial troponin is borderline elevated -0.04 and a repeat was 0.06, Patient will be admitted for for a cardiac evaluation Aspirin 325 mg once, continue aspirin 81 mg daily p.o. Follow-up echocardiogram Telemetry monitoring Consult farmworker cranberry for evaluation treatment 03/31/23: Maybe sepsis related Sepsis, multifocal pneumonia:? Suspecting hospital-acquired pneumonia versus aspiration pneumonia Patient had a fever 102.5 yesterday, leukopenia 2.7, tachycardia tachypnea, meeting criteria of sepsis X-ray showed bilateral base pneumonia, suspecting hospital-acquired pneumonia given recent hospitalization versus aspiration pneumonia ?speech evaluation Patient is on daptomycin, and cefepime Now patient has no fever Blood culture grows??Serratia marcescens;?Enterobacter hormaechei urine culture pending Continue current antibiotics Removed left arm picc line,? will place a new line for daptomycin at discharge Discontinue cefepime and changed to Levaquin p.o. on 04/01. Patient is afebrile Sepsis has resolved, repeated blood cultures no growth so better so for Pancytopenia Patient has chronic anemia, although hemoglobin does not drop significantly, the leukopenia and thrombocytopenia have developed during hospitalization Possible due to sepsis Follow-up CBC, blood smear, reticulocyte, guaiac, ferritin, iron panel, Consult heme oncologist for evaluation treatment 03/31/23: Will continue Abx; perform Blood cultures White blood cell and platelet are trending up Per Hematology/Oncology: Pancytopenia- Patients pancytopenia is likely secondary to sepsis, infection, wi
[2023-04-02 08:00] LABS: Hematocrit 32.7 % (42.0-52.0); Hemoglobin 9.9 g/dL (14.0-18.0); Mean Corpuscular HGB Conc 30.3 g/dl (32-36); Mean Corpuscular Hemoglobin 27.2 pg (26-34); Mean Corpuscular Volume 89.8 fl (80-100); Mean Platelet Volume 9.7 fl (7.4-10.4); Platelet Count Result 133 k/mm3 (150-375); Red Blood Count 3.64 M/mm3 (4.6-6.20); Red Cell Distribution Width 14.7 % (11.5-14.5); White Blood Count 3.7 K/mm3 (4.5-10.0)
--- NOTE | 2023-04-02 08:10 | PCPTNOTE ---
Patient refused treatment this session due to not feeling well. Patient reported he feels nauseous at this time and reported he can not work with PT.
[2023-04-02 08:15] LABS: Alanine Aminotransferase 26 U/L (6-50); Albumin Level 2.7 g/dL (3.5-5.1); Alkaline Phosphatase 79 U/L (38-126); Anion Gap -2 mmol/L (8-16); Aspartate Amino Transferase 30 U/L (17-59); Bilirubin,Total 0.5 mg/dL (0.2-1.3); Blood Urea Nitrogen 7 mg/dL (9-20); Calcium 8.2 mg/dL (8.4-10.2); Carbon Dioxide 33 mmol/L (22-30); Chloride 105 mmol/L (98-107); Estimated CRCL calculation 86 ml/min; Estimated Glomerular Filt Rate > 60; Glucose 102 mg/dL (65-110); Potassium 3.5 mmol/L (3.4-5.0); Sodium 136 mmol/L (137-145)
[2023-04-02 08:33] LABS: Anisocytosis 1+ (NORMAL); Band Neutrophils Percent 2 % (0-6); Eosinophils Absolute Manual 0.11 K/mm3 (0.02-0.5); Eosinophils Percent Manual 3 % (0-4); Hypochromasia 1+ (NORMAL); Lymphocytes Absolute Manual 1.07 K/mm3 (1.1-4.5); Monocytes Absolute Manual 0.33 K/mm3 (0.1-0.90); Monocytes Percent Manual 9 % (3-9); Neutrophils Absolute Manual 2.18 K/mm3 (1.3-6.7); Neutrophils Percent Manual 57 % (46-73); Schistocytes None Seen (NORMAL); Total Cells Counted 100
[2023-04-02] MEDS: ONDANSETRON INJ 4 MG/2 ML VIAL IV PUSH ×2 (08:36→13:00)
[2023-04-02] MEDS: guaiFENesin/DEXTROMETHORPHAN 10 ML UDC PO ×2 (09:52→20:55)
[2023-04-02] MEDS: PANTOPRAZOLE 40 MG TABLET PO ×2 (09:52→20:55)
[2023-04-02] MEDS: AMIODARONE HCL 200 MG TABLET PO (09:52)
[2023-04-02] MEDS: METOPROLOL SUCCINATE EXT REL 25 MG TABCR PO (09:52)
[2023-04-02] MEDS: SACUBITRIL/VALSARTAN 49-51 MG TABLET 1 TABLET PO ×2 (09:52→20:55)
[2023-04-02] MEDS: SPIRONOLACTONE 25 MG TABLET PO (09:52)
[2023-04-02] MEDS: SENNOSIDES 8.6 MG TABLET PO (09:52)
[2023-04-02] MEDS: polyethylene glycoL 3350 17 GM POWD.PACK PO (09:53)
[2023-04-02] MEDS: LIDOCAINE 5% PATCH 1 PATCH TOPICAL (09:53)
[2023-04-02] MEDS: NYSTATIN 100,000 UNITS/ML SUSP 5 ML ORAL.SUSP PO ×4 (09:53→20:55)
[2023-04-02] MEDS: DAPTOmycin 500 MG in SODIUM CHLORIDE 0.9% IV 50 ML 100 MG IVPB (09:53)
[2023-04-02] MEDS: MICONAZOLE NITRATE 2% CREAM 30 GM TUBE 1 APPLIC TOPICAL ×2 (09:53→20:56)
--- NOTE | 2023-04-02 09:57 | P.PNPL_ITS ---
Progress Note: A&P Assessment and Plan (1) Acute hypoxemic respiratory failure: Code(s): J96.01 - Acute respiratory failure with hypoxia Status: Acute Assessment and Plan: Our 78-year-old patient, with no previous history of lung disease, was previously admitted to another facility due to back pain and has been undergoing prolonged antibiotic treatment. The exact source of the infection remains undetermined. During his hospital stay, arterial blood gases revealed mild hypercapnic respiratory failure, which was not observed in subsequent tests. Acute changes in mental status, potentially related to his opioid medication for back pain, could explain the initial hypercapnic failure observed in blood gases drawn three days ago. Chest imaging has not identified any signs of lower respiratory tract infection. The patient has been essentially bedridden due to severe back pain, which likely caused the bilateral lower lobe atelectasis observed in chest imaging, including a CT scan, and may explain the hypoxemia. Based on a witnessed apneic episode, the patient may have obstructive sleep apnea, although he has never undergone a sleep study. The patient is currently being treated with antibiotics for newly detected bacteremia, which appears to be the primary concern at this stage. Pancytopenia with relative eosinophilia has been noted and Hematology Services have evaluated him for possible sepsis. He has also been reviewed by Cardiology Services due to a history of congestive heart failure and atrial fibrillation.? The case has been discussed at length with the patient's hospitalist. 03/31/23: Plan: From a respiratory perspective, I see no evidence of lower respiratory tract infection. A repeat chest x-ray will be performed. The patient will continue with BiPAP support using lower pressures for potential sleep disordered breathing. Further testing for sleep disordered breathing will be required on an outpatient basis. We will continue to monitor and collaborate on his care. 04/01/23: Patient denies any respiratory symptoms. No fever, chills, rigors, hemoptysis. He has some postnasal drip with minimal cough. He has no shortness of breath when walking across the room. When I enter the room he was on 3 L nasal cannula saturations 98%. I decreased him to room air and his saturations after 15 minutes were 92%. White blood cell count 2.9, platelets 102, creatinine 0.8. Plan: Patient on no oxygen prior to this admission and currently I have decreased him to room air. I will check an overnight oximetry on room air. He states the BiPAP is not very comfortable for him and he sleeps better without it. At this time I will discontinue the BiPAP. He will need an outpatient sleep study. No history of asthma, COPD or reactive airways disease. I will discontinue DuoNebs. Later in the day spoke with doctors I will and the plan is to transfer the patient to [facility] for consultation with Infectious Disease team. 04/02/23: Shows all night and had difficulty sleeping. He denies any respiratory complaints. When I entered the room he is on 4 L nasal cannula saturations 98%. I decreased him to room air and his saturations were 91%. Patient had an overnight oximetry on room air with recording duration of 6 hours and 28 minutes. Average saturation 89%. Low saturation 68%. Time with saturation less than or equal to 88% was 102 minutes. Oxygen desaturation index 34.7. Afebrile. white blood cell count 3.7. Platelets 133. Plan: Patient has nocturnal hypoxemia with a high oxygen desaturation index of 34.7 on last night's overnight oximetry. I suspect he has obstructive sleep apnea and will need an outpatient sleep study. In the meantim
--- NOTE | 2023-04-02 10:41 | PCNWS ---
Weekly nutritional screen. Patient is tolerating current diet with adequate intake. Intakes 70-100% on heart healthy diet. Pt did not want breakfast today. No weight loss reported. No nutritional needs at this time.
[2023-04-02] MEDS: METOCLOPRAMIDE HCL INJ 10 MG/2 ML VIAL IV PUSH (18:12)
[2023-04-02] MEDS: levoFLOXacin 750 MG TABLET PO (20:55)
[2023-04-03] VITALS (11 sets, daily range): BP systolic 154–156; BP diastolic 78–87; PULSE 59–75; RESP 12–20; TEMP 36.6–36.9; O2SAT 91–100
[2023-04-03] MEDS: traZODone HCL 50 MG TABLET PO (01:34)
--- NOTE | 2023-04-03 02:10 | PC.NURSE ---
Call to RT r/t O2 sats; patient is on a sleep study utilizing 2L/NC and desats to the 60's per continous pulse ox. O2 sat obtained using vitals cart depicts O2 sat of 54%. RN instructed to increase O2 flow rate to 4L/NC. RT to assess patient and make further modifications to O2 requirements as necessary.
[2023-04-03 05:17] LABS: Hematocrit 33.8 % (42.0-52.0); Mean Corpuscular HGB Conc 29.6 g/dl (32-36); Mean Corpuscular Hemoglobin 27.3 pg (26-34); Mean Corpuscular Volume 92.3 fl (80-100); Mean Platelet Volume 9.9 fl (7.4-10.4); Platelet Count Result 163 k/mm3 (150-375); Red Blood Count 3.66 M/mm3 (4.6-6.20); Red Cell Distribution Width 15.3 % (11.5-14.5); White Blood Count 4.4 K/mm3 (4.5-10.0)
[2023-04-03 05:38] LABS: Alanine Aminotransferase 23 U/L (6-50); Albumin Level 2.6 g/dL (3.5-5.1); Alkaline Phosphatase 78 U/L (38-126); Aspartate Amino Transferase 26 U/L (17-59); Bilirubin,Total 0.4 mg/dL (0.2-1.3); Blood Urea Nitrogen 6 mg/dL (9-20); Calcium 8.1 mg/dL (8.4-10.2); Carbon Dioxide > 40 mmol/L (22-30); Chloride 102 mmol/L (98-107); Estimated CRCL calculation 76 ml/min; Estimated Glomerular Filt Rate > 60; Glucose 94 mg/dL (65-110); Sodium 136 mmol/L (137-145)
[2023-04-03 05:53] LABS: Potassium 4.2 mmol/L (3.4-5.0)
[2023-04-03] MEDS: SODIUM CHLORIDE 0.9% IV 1,000 ML 125 ML IV CONT ×3 (06:16→20:31)
[2023-04-03 06:38] LABS: Anisocytosis 1+ (NORMAL); Hypochromasia 1+ (NORMAL); Platelet Estimate Adequate (Adequate); Schistocytes None Seen (NORMAL)
[2023-04-03] MEDS: ACETAMINOPHEN 325 MG TABLET 650 MG PO ×2 (07:51→20:32)
[2023-04-03] MEDS: SACUBITRIL/VALSARTAN 49-51 MG TABLET 1 TABLET PO ×2 (08:39→20:32)
[2023-04-03] MEDS: SENNOSIDES 8.6 MG TABLET PO (08:40)
[2023-04-03] MEDS: PANTOPRAZOLE 40 MG TABLET PO ×2 (08:40→20:32)
[2023-04-03] MEDS: NYSTATIN 100,000 UNITS/ML SUSP 5 ML ORAL.SUSP PO ×4 (08:41→20:31)
[2023-04-03] MEDS: SPIRONOLACTONE 25 MG TABLET PO (08:41)
[2023-04-03] MEDS: DAPTOmycin 500 MG in SODIUM CHLORIDE 0.9% IV 50 ML 100 MG IVPB (08:41)
[2023-04-03] MEDS: LIDOCAINE 5% PATCH 1 PATCH TOPICAL (08:41)
[2023-04-03] MEDS: AMIODARONE HCL 200 MG TABLET PO (08:42)
[2023-04-03] MEDS: METOPROLOL SUCCINATE EXT REL 25 MG TABCR PO (08:42)
[2023-04-03] MEDS: MICONAZOLE NITRATE 2% CREAM 30 GM TUBE 1 APPLIC TOPICAL ×2 (08:43→20:33)
--- NOTE | 2023-04-03 08:51 | PM.IMPN ---
Progress Note: A&P Assessment and Plan (1) Sepsis: Code(s): A41.9 - Sepsis, unspecified organism Status: Acute Assessment and Plan: on Daptomycin till 04/20/23 Repeat blood culture May need to be transferred to [facility] for full ID support (2) Hospital-acquired pneumonia: Code(s): J18.9 - Pneumonia, unspecified organism; Y95 - Nosocomial condition Status: Acute Assessment and Plan: Wean oxygen; s/p Cefepime (3) Multifocal pneumonia: Code(s): J18.9 - Pneumonia, unspecified organism Status: Acute Assessment and Plan: On Cefepime and Daptomycin (4) Hypoxia: Code(s): R09.02 - Hypoxemia Status: Acute Assessment and Plan: Likely 2/2 Pneumonia Incentive spirometry; wean oxygen (5) Elevated troponin: Code(s): R79.89 - Other specified abnormal findings of blood chemistry Status: Acute Assessment and Plan: Probably 2/2 demand ischemia Hx of CAD (6) Acute hypoxemic respiratory failure: Code(s): J96.01 - Acute respiratory failure with hypoxia Status: Acute Assessment and Plan: Likely multifactorial; Pneumonia, CHFrEF (7) Lumbar discitis: Code(s): M46.46 - Discitis, unspecified, lumbar region Status: Acute Assessment and Plan: on Daptomycin, Cefepime (8) Afib: Code(s): I48.91 - Unspecified atrial fibrillation Status: Acute Assessment and Plan: on Amiodarone, Eliquis was held due to thrombocytopenia Plan Paroxysmal atrial fibrillation his EKG showed right bundle-branch block, no prior EKG for comparison, Continue amiodarone 200 mg daily Discontinue eliquis 5 mg b.i.d. p.o. because of her thrombocytopenia 04/03: Some also dyspnea and leukopenia have resolved, will resume Eliquis 5 mg b.i.d. p.o. Lumbar diskitis CT chest abdomen pelvis with contrast was done ?found to have diskitis at L4-L5.? nd IV daptomycin will be continued nd IV daptomycin will be continued 03/31/23: On Daptomycin; Acute respiratory failure with hypercapnia Dependent atelectasis in the bilateral lower lobes. No other acute cardiopulmonary disease. CT with contrast does not show PE Possible due to new pneumonia Start DuoNeb scheduled albuterol nebulizer as needed Start CPAP respiratory therapist 2/18/24: Pulmonology on board Now patient is on 2 L oxygen via nasal cannular Elevated troponin could be secondary to hypoxia, dehydration, or ACS. initial troponin is borderline elevated -0.04 and a repeat was 0.06, Patient will be admitted for for a cardiac evaluation Aspirin 325 mg once, continue aspirin 81 mg daily p.o. Follow-up echocardiogram Telemetry monitoring Consult inspection supervisor for evaluation treatment 03/31/23: Maybe sepsis related Sepsis, multifocal pneumonia:? Suspecting hospital-acquired pneumonia versus aspiration pneumonia Patient had a fever 102.5 yesterday, leukopenia 2.7, tachycardia tachypnea, meeting criteria of sepsis X-ray showed bilateral base pneumonia, suspecting hospital-acquired pneumonia given recent hospitalization versus aspiration pneumonia ?speech evaluation Patient is on daptomycin, and cefepime Now patient has no fever Blood culture grows??Serratia marcescens;?Enterobacter hormaechei urine culture pending Continue current antibiotics Removed left arm picc line,? will place a new line for daptomycin at discharge Discontinue cefepime and changed to Levaquin p.o. on 04/01. Patient is afebrile Sepsis has resolved, repeated blood cultures no growth so better so for Pancytopenia Patient has chronic anemia, although hemoglobin does not drop significantly, the leukopenia and thrombocytopenia have developed during hospitalization Possible due to sepsis Follow-up CBC, blood smear, reticulocyte, guaiac, ferritin, iron panel, Consult heme oncologist for evaluation treatment 03/31/23: Will continue Abx; perform Blood cultures White blood cell and platelet are trending up 04/03: Leukopen
[2023-04-03] MEDS: APIXABAN 5 MG TABLET PO ×2 (09:13→20:32)
--- NOTE | 2023-04-03 09:50 | PM.PNPUL ---
Progress Note: A&P Assessment and Plan (1) Acute hypoxemic respiratory failure: Code(s): J96.01 - Acute respiratory failure with hypoxia Status: Acute Assessment and Plan: Our 78-year-old patient, with no previous history of lung disease, was previously admitted to another facility due to back pain and has been undergoing prolonged antibiotic treatment. The exact source of the infection remains undetermined. During his hospital stay, arterial blood gases revealed mild hypercapnic respiratory failure, which was not observed in subsequent tests. Acute changes in mental status, potentially related to his opioid medication for back pain, could explain the initial hypercapnic failure observed in blood gases drawn three days ago. Chest imaging has not identified any signs of lower respiratory tract infection. The patient has been essentially bedridden due to severe back pain, which likely caused the bilateral lower lobe atelectasis observed in chest imaging, including a CT scan, and may explain the hypoxemia. Based on a witnessed apneic episode, the patient may have obstructive sleep apnea, although he has never undergone a sleep study. The patient is currently being treated with antibiotics for newly detected bacteremia, which appears to be the primary concern at this stage. Pancytopenia with relative eosinophilia has been noted and Hematology Services have evaluated him for possible sepsis. He has also been reviewed by Cardiology Services due to a history of congestive heart failure and atrial fibrillation.? The case has been discussed at length with the patient's hospitalist. 03/31/23: Plan: From a respiratory perspective, I see no evidence of lower respiratory tract infection. A repeat chest x-ray will be performed. The patient will continue with BiPAP support using lower pressures for potential sleep disordered breathing. Further testing for sleep disordered breathing will be required on an outpatient basis. We will continue to monitor and collaborate on his care. 04/01/23: Patient denies any respiratory symptoms. No fever, chills, rigors, hemoptysis. He has some postnasal drip with minimal cough. He has no shortness of breath when walking across the room. When I enter the room he was on 3 L nasal cannula saturations 98%. I decreased him to room air and his saturations after 15 minutes were 92%. White blood cell count 2.9, platelets 102, creatinine 0.8. Plan: Patient on no oxygen prior to this admission and currently I have decreased him to room air. I will check an overnight oximetry on room air. He states the BiPAP is not very comfortable for him and he sleeps better without it. At this time I will discontinue the BiPAP. He will need an outpatient sleep study. No history of asthma, COPD or reactive airways disease. I will discontinue DuoNebs. Later in the day spoke with doctors I will and the plan is to transfer the patient to [facility] for consultation with Infectious Disease team. 04/02/23: Shows all night and had difficulty sleeping. He denies any respiratory complaints. When I entered the room he is on 4 L nasal cannula saturations 98%. I decreased him to room air and his saturations were 91%. Patient had an overnight oximetry on room air with recording duration of 6 hours and 28 minutes. Average saturation 89%. Low saturation 68%. Time with saturation less than or equal to 88% was 102 minutes. Oxygen desaturation index 34.7. Afebrile. white blood cell count 3.7. Platelets 133. Plan: Patient has nocturnal hypoxemia with a high oxygen desaturation index of 34.7 on last night's overnight oximetry. I suspect he has obstructive sleep apnea and will need an outpatient sleep study. In the meantime I will place him on 2 L nasal cannula tonight and repeat an overnight oximetry. Goal saturation during the day is 90-94% and currently is tolerating room air. 04/03/23: No respiratory complaints. Patient said he slept
[2023-04-03 12:52] LABS: Soluble Transferrin Receptor 1.45 mg/L (0.76-1.76)
[2023-04-03 18:58] LABS: Platelet Antibody, Direct NEGATIVE (NEGATIVE)
[2023-04-03] MEDS: guaiFENesin/DEXTROMETHORPHAN 10 ML UDC PO (20:31)
[2023-04-03] MEDS: levoFLOXacin 750 MG TABLET PO (20:32)
[2023-04-03] MEDS: diphenhydrAMINE HCl CAP 25 MG CAPSULE 50 MG PO (20:32)
--- NOTE | 2023-04-03 23:39 | PC.NURSE ---
Addendum entered by Tessa Velez RN 04/04/23 00:00: Pt refused to have head of bed elevated and pt bed unlocked allowing him to return to a flat position. Original Note: Pt desaturation 76% pt sleeping, I went into the room and woke pt up and sat patient up in bed. Pt yelled stated that he had a bad back and could not sit up. I attempted to explain to the patient the reason for my waking him up and raising his bed, and locking the bed in a 30 degree position. Pt continue to yell at staff and stated that we could not keep him sitting up and that he wanted to lay flat due to back pain. Pt refused to stay sitting up and stated that he didn't care about his breathing but only his back pain. I explained to pt that when his O2 saturation would go back down that I would need to wake him up again that I was concerned about his breathing. Pt continued to yell at staff about his back. I attempted again to explain to the patient that I was concerned about his O2 saturation and he stated that it did not just happen when he was sleeping. I explained that he frequently has desaturation while sleeping and that I was concerned about it. Pt remains agitated but Pt stated that he would put on a CPAP at this time. Call placed to Sherry Thomas who ordered a CPAP at this time.
[2023-04-04] VITALS (18 sets, daily range): BP systolic 150–179; BP diastolic 69–83; PULSE 58–68; RESP 12–20; TEMP 36.8–37.1; O2SAT 89–99
--- NOTE | 2023-04-04 01:32 | PC.NURSE ---
Pt refusing to keep CPAP on pt stated that it does not fit. Attempted to fix the mask to make it more comfortable with out success and then called resp to attempt to fix mask. Resp attempted to fix mask with out success per the pt. Pt laying flat in bed and pt made aware that if he desaturates we would be waking him back up. Pt is agreeable to this at this time. Pt O2 saturation at this time is 99% and pt is awake and on his phone. Will cont to monitor.
[2023-04-04 05:19] LABS: Hematocrit 34.6 % (42.0-52.0); Mean Corpuscular HGB Conc 28.9 g/dl (32-36); Mean Corpuscular Volume 93.3 fl (80-100); Mean Platelet Volume 9.8 fl (7.4-10.4); Platelet Count Result 175 k/mm3 (150-375); Red Blood Count 3.71 M/mm3 (4.6-6.20); Red Cell Distribution Width 15.4 % (11.5-14.5); White Blood Count 4.6 K/mm3 (4.5-10.0)
[2023-04-04] MEDS: SODIUM CHLORIDE 0.9% IV 1,000 ML 125 ML IV CONT (05:46)
[2023-04-04 05:51] LABS: Band Neutrophils Percent 6 % (0-6); Eosinophils Absolute Manual 0.09 K/mm3 (0.02-0.5); Eosinophils Percent Manual 2 % (0-4); Lymphocytes Absolute Manual 0.64 K/mm3 (1.1-4.5); Monocytes Absolute Manual 0.32 K/mm3 (0.1-0.90); Monocytes Percent Manual 7 % (3-9); Neutrophils Absolute Manual 3.54 K/mm3 (1.3-6.7); Neutrophils Percent Manual 71 % (46-73); Platelet Estimate Adequate (Adequate); Total Cells Counted 100
[2023-04-04 05:52] LABS: Anisocytosis 1+ (NORMAL); Hypochromasia 2+ (NORMAL); Macrocytosis 1+ (NORMAL); Ovalocytes 1+ (NORMAL); Schistocytes None Seen (NORMAL)
[2023-04-04 05:53] LABS: Alanine Aminotransferase 20 U/L (6-50); Albumin Level 2.6 g/dL (3.5-5.1); Alkaline Phosphatase 76 U/L (38-126); Anion Gap -3 mmol/L (8-16); Aspartate Amino Transferase 27 U/L (17-59); Bilirubin,Total 0.5 mg/dL (0.2-1.3); Blood Urea Nitrogen 6 mg/dL (9-20); Carbon Dioxide 39 mmol/L (22-30); Chloride 101 mmol/L (98-107); Estimated CRCL calculation 86 ml/min; Estimated Glomerular Filt Rate > 60; Glucose 93 mg/dL (65-110); Potassium 3.4 mmol/L (3.4-5.0); Sodium 137 mmol/L (137-145)
--- NOTE | 2023-04-04 07:31 | PM.IMPN ---
Progress Note: A&P Assessment and Plan (1) Sepsis: Code(s): A41.9 - Sepsis, unspecified organism Status: Acute (2) Hospital-acquired pneumonia: Code(s): J18.9 - Pneumonia, unspecified organism; Y95 - Nosocomial condition Status: Acute (3) Multifocal pneumonia: Code(s): J18.9 - Pneumonia, unspecified organism Status: Acute (4) Hypoxia: Code(s): R09.02 - Hypoxemia Status: Acute (5) Elevated troponin: Code(s): R79.89 - Other specified abnormal findings of blood chemistry Status: Acute (6) Acute hypoxemic respiratory failure: Code(s): J96.01 - Acute respiratory failure with hypoxia Status: Acute (7) Lumbar discitis: Code(s): M46.46 - Discitis, unspecified, lumbar region Status: Acute Assessment and Plan: on Daptomycin, Cefepime (8) Afib: Code(s): I48.91 - Unspecified atrial fibrillation Status: Acute Assessment and Plan: on Amiodarone, Eliquis was held due to thrombocytopenia Plan Paroxysmal atrial fibrillation his EKG showed right bundle-branch block, no prior EKG for comparison, Continue amiodarone 200 mg daily Discontinue eliquis 5 mg b.i.d. p.o. because of her thrombocytopenia 04/03: Some also dyspnea and leukopenia have resolved, will resume Eliquis 5 mg b.i.d. p.o. 04/04: Rate controlled, continue current management Lumbar diskitis CT chest abdomen pelvis with contrast was done ?found to have diskitis at L4-L5.? nd IV daptomycin will be continued nd IV daptomycin will be continued on Daptomycin till 04/20/23 Repeat blood culture no growth Acute respiratory failure with hypercapnia Dependent atelectasis in the bilateral lower lobes. No other acute cardiopulmonary disease. CT with contrast does not show PE Possible due to new pneumonia Start DuoNeb scheduled albuterol nebulizer as needed Start CPAP respiratory therapist 03/31/23: Pulmonology on board Now patient is on 2 L oxygen via nasal cannular Elevated troponin could be secondary to hypoxia, dehydration, or ACS. initial troponin is borderline elevated -0.04 and a repeat was 0.06, Patient will be admitted for for a cardiac evaluation Aspirin 325 mg once, continue aspirin 81 mg daily p.o. Follow-up echocardiogram Telemetry monitoring Consult pediatric clinical nurse specialist for evaluation treatment 03/31/23: Maybe sepsis related no chest pain Sepsis, multifocal pneumonia:? Suspecting hospital-acquired pneumonia versus aspiration pneumonia Patient had a fever 102.5 yesterday, leukopenia 2.7, tachycardia tachypnea, meeting criteria of sepsis X-ray showed bilateral base pneumonia, suspecting hospital-acquired pneumonia given recent hospitalization versus aspiration pneumonia ?speech evaluation Patient is on daptomycin, and cefepime Now patient has no fever Blood culture grows??Serratia marcescens;?Enterobacter hormaechei urine culture pending Continue current antibiotics Removed left arm picc line,? will place a new line for daptomycin at discharge Discontinue cefepime and changed to Levaquin p.o. on 04/01. Patient is afebrile Sepsis has resolved, repeated blood cultures no growth so better so for Pancytopenia Patient has chronic anemia, although hemoglobin does not drop significantly, the leukopenia and thrombocytopenia have developed during hospitalization Possible due to sepsis Follow-up CBC, blood smear, reticulocyte, guaiac, ferritin, iron panel, Consult heme oncologist for evaluation treatment 03/31/23: Will continue Abx; perform Blood cultures White blood cell and platelet are trending up 04/03: Leukopenia and thrombocytopenia have resolved, hemoglobin is trending up 04/04: Hemoglobin stable, Per Hematology/Oncology: Pancytopenia- Patients pancytopenia is likely secondary to sepsis, infection, with possibility of drug-induced thrombocytopenia due to antibiotic use. Dapto and cefepime have bone marrow suppression effects. Nutritional deficiencies could also be a
[2023-04-04] MEDS: LIDOCAINE 5% PATCH 1 PATCH TOPICAL (08:53)
[2023-04-04] MEDS: AMIODARONE HCL 200 MG TABLET PO (08:53)
[2023-04-04] MEDS: polyethylene glycoL 3350 17 GM POWD.PACK PO (08:53)
[2023-04-04] MEDS: NYSTATIN 100,000 UNITS/ML SUSP 5 ML ORAL.SUSP PO ×4 (08:53→20:32)
[2023-04-04] MEDS: SACUBITRIL/VALSARTAN 49-51 MG TABLET 1 TABLET PO ×2 (08:53→20:33)
[2023-04-04] MEDS: METOPROLOL SUCCINATE EXT REL 25 MG TABCR PO (08:54)
[2023-04-04] MEDS: PANTOPRAZOLE 40 MG TABLET PO ×2 (08:54→20:33)
[2023-04-04] MEDS: SENNOSIDES 8.6 MG TABLET PO ×2 (08:54→17:38)
[2023-04-04] MEDS: SPIRONOLACTONE 25 MG TABLET PO (08:54)
[2023-04-04] MEDS: APIXABAN 5 MG TABLET PO ×2 (08:55→20:33)
[2023-04-04] MEDS: MICONAZOLE NITRATE 2% CREAM 30 GM TUBE 1 APPLIC TOPICAL ×2 (08:55→20:33)
[2023-04-04] MEDS: ONDANSETRON INJ 4 MG/2 ML VIAL IV PUSH (08:55)
[2023-04-04] MEDS: DAPTOmycin 500 MG in SODIUM CHLORIDE 0.9% IV 50 ML 100 MG IVPB (09:17)
[2023-04-04] MEDS: LIDOCAINE HCL 1% PF INJ 5 ML VIAL INFILTRATE (11:40)
[2023-04-04] MEDS: CENTRAL LINE FLUSH 10 ML IV PUSH ×2 (17:39→20:33)
[2023-04-04] MEDS: guaiFENesin/DEXTROMETHORPHAN 10 ML UDC PO (20:32)
[2023-04-04] MEDS: levoFLOXacin 750 MG TABLET PO (20:33)
[2023-04-04] MEDS: diphenhydrAMINE HCl CAP 25 MG CAPSULE 50 MG PO (20:33)
[2023-04-04] MEDS: ACETAMINOPHEN 325 MG TABLET 650 MG PO (20:33)
[2023-04-05] VITALS (12 sets, daily range): BP systolic 142–158; BP diastolic 77–88; PULSE 59–81; RESP 20; TEMP 36.7–37.1; O2SAT 96–99
--- NOTE | 2023-04-05 03:19 | PCRCNOTE ---
patient refused use of the hospital cpap/bipap unit and stated that he will use one after he obtains a sleep study upon discharge; RT explained the benefits of use to no avail (RN was notified)
[2023-04-05 05:55] LABS: Hematocrit 38.3 % (42.0-52.0); Hemoglobin 11.1 g/dL (14.0-18.0); Mean Corpuscular Volume 93.2 fl (80-100); Mean Platelet Volume 9.5 fl (7.4-10.4); Platelet Count Result 193 k/mm3 (150-375); Red Blood Count 4.11 M/mm3 (4.6-6.20); Red Cell Distribution Width 15.8 % (11.5-14.5); White Blood Count 4.5 K/mm3 (4.5-10.0)
[2023-04-05 06:11] LABS: Alanine Aminotransferase 20 U/L (6-50); Alkaline Phosphatase 72 U/L (38-126); Aspartate Amino Transferase 35 U/L (17-59); Bilirubin,Total 0.7 mg/dL (0.2-1.3); Blood Urea Nitrogen 6 mg/dL (9-20); Calcium 8.3 mg/dL (8.4-10.2); Carbon Dioxide > 40 mmol/L (22-30); Chloride 98 mmol/L (98-107); Estimated CRCL calculation 85 ml/min; Estimated Glomerular Filt Rate > 60; Glucose 106 mg/dL (65-110); Potassium 5.4 mmol/L (3.4-5.0); Sodium 136 mmol/L (137-145)
[2023-04-05 06:15] LABS: Creatine Kinase 27 U/L (55-170)
[2023-04-05] MEDS: CENTRAL LINE FLUSH 10 ML IV PUSH ×2 (06:28→17:41)
[2023-04-05 06:35] LABS: Band Neutrophils Percent 4 % (0-6); Basophils Absolute Manual 0.04 K/mm3 (0.0-0.1); Basophils Percent Manual 1 % (0-1); Eosinophils Absolute Manual 0.22 K/mm3 (0.02-0.5); Eosinophils Percent Manual 5 % (0-4); Lymphocytes Absolute Manual 1.12 K/mm3 (1.1-4.5); Metamyelocytes Percent 1 %; Monocytes Absolute Manual 0.36 K/mm3 (0.1-0.90); Monocytes Percent Manual 8 % (3-9); Neutrophils Percent Manual 56 % (46-73); Platelet Estimate Adequate (Adequate); Total Cells Counted 100
[2023-04-05 06:36] LABS: Hypochromasia 1+ (NORMAL); Schistocytes None Seen (NORMAL)
--- NOTE | 2023-04-05 07:59 | PM.DS ---
DS: Admitting Diagnosis Discharge Date 04/05/23 Admitting Diagnosis (1) Sepsis: ?Code(s): A41.9 - Sepsis, unspecified organism ?Status:?Acute (2) Hospital-acquired pneumonia: ?Code(s): J18.9 - Pneumonia, unspecified organism; Y95 - Nosocomial condition ?Status:?Acute (3) Multifocal pneumonia: ?Code(s): J18.9 - Pneumonia, unspecified organism ?Status:?Acute (4) Hypoxia: ?Code(s): R09.02 - Hypoxemia ?Status:?Acute (5) Elevated troponin: ?Code(s): R79.89 - Other specified abnormal findings of blood chemistry ?Status:?Acute (6) Acute hypoxemic respiratory failure: ?Code(s): J96.01 - Acute respiratory failure with hypoxia ?Status:?Acute (7) Lumbar discitis: ?Code(s): M46.46 - Discitis, unspecified, lumbar region ?Status:?Acute ?Assessment and Plan: on Daptomycin, Cefepime (8) Afib: ?Code(s): I48.91 - Unspecified atrial fibrillation ?Status:?Acute ?Assessment and Plan: on Amiodarone, Eliquis was held due to thrombocytopenia DS: Summary Time Spent with Patient Time attestation: Total time spent providing and/or coordinating discharge services: DS: Data Data Completed and Pending Labs on day of discharge: Labs from last 24 hours 04/05/23 05:44 WBC 4.5 RBC 4.11 L Hgb 11.1 L Hct 38.3 L MCV 93.2 MCH 27.0 MCHC 29.0 L RDW 15.8 H Plt Count 193 MPV 9.5 Immature Gran % (Auto) Not Reportable Neut % (Auto) Not Reportable Lymph % (Auto) Not Reportable Iron % (Auto) Not Reportable Eos % (Auto) Not Reportable Baso % (Auto) Not Reportable Lymph # (Auto) Not Reportable Iron # (Auto) Not Reportable Eos # (Auto) Not Reportable Baso # (Auto) Not Reportable Abs Immat Gran (auto) Not Reportable Absolute Neuts (auto) Not Reportable Absolute Nucleated RBC Not Reportable Total Counted 100 Neutrophils % (Manual) 56 Band Neutrophils % 4 Lymphocytes % (Manual) 25.0 Monocytes % (Manual) 8 Eosinophils % (Manual) 5 H Basophils % (Manual) 1 Metamyelocytes % 1 Nucleated RBC % Not Reportable Abs Neuts (Manual) 2.70 Abs Lymphs (Manual) 1.12 Abs Monocytes (Manual) 0.36 Absolute Eos (Manual) 0.22 Abs Basophils (Manual) 0.04 Platelet Estimate Adequate Hypochromasia 1+ Schistocytes None seen Sodium 136 L Potassium 5.4 H Chloride 98 Carbon Dioxide > 40 H Anion Gap BUN 6 L Creatinine 0.70 Estim Creat Clear Calc 85 Estimated GFR > 60 Glucose 106 Calcium 8.3 L Total Bilirubin 0.7 AST 35 ALT 20 Alkaline Phosphatase 72 Total Creatine Kinase 27 L Total Protein 6.0 L Albumin 3.0 L Preliminary micro results at discharge 03/31/23 11:15 Blood Culture - Preliminary Blood 03/31/23 11:24 Blood Culture - Preliminary Blood Discharge Plan Discharge Attending physician on discharge: Ruchi Vasquez Consulting providers: Lonny Kent; Emmanuel Osborne; Fortunato Gallardo Discharging Clinician: Ruchi Vasquez Anticipated Discharge Date/Time: 04/05/23 07:55 Activity: as tolerated and follow weight bearing status Diet: heart healthy Discharge Instructions: Patient was given office information to follow up with an appointment at the [facility] [id number] [place] upon discharge. Please call our office number ([phone]) to make a follow up appointment regarding low blood counts Patient Instructions: Apixaban (By mouth), Heart Failure (DC), How to Stop Smoking (GEN), Safe Use of Anticoagulants (DC), High Troponin Levels (GEN) Stand Alone Forms: General Discharge Information Follow-up/Referrals: PHYSICIAN NOT ON STAFF,NONSTAFF [Primary Care Provider] - (Patient needs to see primary care doctor in 1 week) Discharge Medications: New levofloxacin 750 mg tablet 750 mg PO DAILY Qty: 4 0RF Continued gabapentin 600 mg tablet 600 mg PO TID sennosides [senna] 8.6 mg Tablet 8.6 mg PO HS nystatin
[2023-04-05] MEDS: METOPROLOL SUCCINATE EXT REL 25 MG TABCR PO (09:39)
[2023-04-05] MEDS: SACUBITRIL/VALSARTAN 49-51 MG TABLET 1 TABLET PO ×2 (09:39→20:29)
[2023-04-05] MEDS: APIXABAN 5 MG TABLET PO ×2 (09:40→20:29)
[2023-04-05] MEDS: AMIODARONE HCL 200 MG TABLET PO (09:40)
[2023-04-05] MEDS: SENNOSIDES 8.6 MG TABLET PO (09:40)
[2023-04-05] MEDS: SPIRONOLACTONE 25 MG TABLET PO (09:40)
[2023-04-05] MEDS: PANTOPRAZOLE 40 MG TABLET PO ×2 (09:40→20:29)
[2023-04-05] MEDS: MICONAZOLE NITRATE 2% CREAM 30 GM TUBE 1 APPLIC TOPICAL ×2 (09:41→20:30)
[2023-04-05] MEDS: NYSTATIN 100,000 UNITS/ML SUSP 5 ML ORAL.SUSP PO ×3 (09:41→20:29)
[2023-04-05] MEDS: DAPTOmycin 500 MG in SODIUM CHLORIDE 0.9% IV 50 ML 100 MG IVPB (09:41)
[2023-04-05] MEDS: guaiFENesin/DEXTROMETHORPHAN 10 ML UDC PO (09:41)
[2023-04-05] MEDS: LIDOCAINE 5% PATCH 1 PATCH TOPICAL (09:41)
[2023-04-05] MEDS: SODIUM ZIRCONIUM CYCLOSILICATE 10 GM POWD.PACK PO (12:08)
[2023-04-05 14:05] LABS: Potassium 3.5 mmol/L (3.4-5.0)
[2023-04-05] MEDS: levoFLOXacin 750 MG TABLET PO (20:29)
[2023-04-06] VITALS (10 sets, daily range): BP systolic 159; BP diastolic 83; PULSE 69–95; RESP 20; TEMP 36.6; O2SAT 91–99
--- NOTE | 2023-04-06 07:32 | P.PNIM_ITS ---
Progress Note: A&P Assessment and Plan (1) Sepsis: Code(s): A41.9 - Sepsis, unspecified organism Status: Acute (2) Hospital-acquired pneumonia: Code(s): J18.9 - Pneumonia, unspecified organism; Y95 - Nosocomial condition Status: Acute (3) Multifocal pneumonia: Code(s): J18.9 - Pneumonia, unspecified organism Status: Acute (4) Hypoxia: Code(s): R09.02 - Hypoxemia Status: Acute (5) Elevated troponin: Code(s): R79.89 - Other specified abnormal findings of blood chemistry Status: Acute (6) Acute hypoxemic respiratory failure: Code(s): J96.01 - Acute respiratory failure with hypoxia Status: Acute (7) Lumbar discitis: Code(s): M46.46 - Discitis, unspecified, lumbar region Status: Acute Assessment and Plan: on Daptomycin, Cefepime (8) Afib: Code(s): I48.91 - Unspecified atrial fibrillation Status: Acute Assessment and Plan: on Amiodarone, Eliquis was held due to thrombocytopenia Plan Paroxysmal atrial fibrillation his EKG showed right bundle-branch block, no prior EKG for comparison, Continue amiodarone 200 mg daily Discontinue eliquis 5 mg b.i.d. p.o. because of her thrombocytopenia 04/03: Some also dyspnea and leukopenia have resolved, will resume Eliquis 5 mg b.i.d. p.o. 04/04: Rate controlled, continue current management Lumbar diskitis CT chest abdomen pelvis with contrast was done ?found to have diskitis at L4-L5.? nd IV daptomycin will be continued nd IV daptomycin will be continued on Daptomycin till 04/20/23 Repeat blood culture no growth Acute respiratory failure with hypercapnia Dependent atelectasis in the bilateral lower lobes. No other acute cardiopulmonary disease. CT with contrast does not show PE Possible due to new pneumonia Start DuoNeb scheduled albuterol nebulizer as needed Start CPAP respiratory therapist 03/31/23: Pulmonology on board Now patient is on 2 L oxygen via nasal cannular Elevated troponin could be secondary to hypoxia, dehydration, or ACS. initial troponin is borderline elevated -0.04 and a repeat was 0.06, Patient will be admitted for for a cardiac evaluation Aspirin 325 mg once, continue aspirin 81 mg daily p.o. Follow-up echocardiogram Telemetry monitoring Consult public information officer for evaluation treatment 03/31/23: Maybe sepsis related no chest pain Sepsis, multifocal pneumonia:? Suspecting hospital-acquired pneumonia versus aspiration pneumonia Patient had a fever 102.5 yesterday, leukopenia 2.7, tachycardia tachypnea, meeting criteria of sepsis X-ray showed bilateral base pneumonia, suspecting hospital-acquired pneumonia given recent hospitalization versus aspiration pneumonia ?speech evaluation Patient is on daptomycin, and cefepime Now patient has no fever Blood culture grows??Serratia marcescens;?Enterobacter hormaechei urine culture pending Continue current antibiotics Removed left arm picc line,? will place a new line for daptomycin at discharge Discontinue cefepime and changed to Levaquin p.o. on 04/01. Patient is afebrile Sepsis has resolved, repeated blood cultures no growth so better so for Pancytopenia Patient has chronic anemia, although hemoglobin does not drop significantly, the leukopenia and thrombocytopenia have developed during hospitalization Possible due to sepsis Follow-up CBC, blood smear, reticulocyte, guaiac, ferritin, iron panel, Consult heme oncologist for evaluation treatment 03/31/23: Will continue Abx; perform Blood cultures White blood cell and pl
[2023-04-06 08:09] LABS: Basophils Percent Auto 0.6 % (0.2-1.2); Eosinophils Absolute Auto 0.2 K/mm3 (0-0.3); Eosinophils Percent Auto 4.5 % (0-4.4); Hematocrit 38.3 % (42.0-52.0); Hemoglobin 11.2 g/dL (14.0-18.0); Immature Granulocyte Absolute 0.09 K/mm3 (0.00-0.031); Immature Granulocyte Percent A 1.9 % (0-0.5); Lymphocytes Absolute Auto 0.61 K/mm3 (0.9-3.2); Lymphocytes Percent Auto 12.6 % (18.3-44.2); Mean Corpuscular HGB Conc 29.2 g/dl (32-36); Mean Corpuscular Hemoglobin 26.9 pg (26-34); Mean Corpuscular Volume 91.8 fl (80-100); Mean Platelet Volume 9.3 fl (7.4-10.4); Monocytes Absolute Auto 0.5 K/mm3 (0.1-0.6); Monocytes Percent Auto 9.5 % (2.6-8.5); Neutrophils Absolute Auto 3.4 K/mm3 (1.3-6.7); Neutrophils Percent Auto 70.9 % (45.5-73.1); Platelet Count Result 204 k/mm3 (150-375); Red Blood Count 4.17 M/mm3 (4.6-6.20); Red Cell Distribution Width 15.8 % (11.5-14.5); White Blood Count 4.8 K/mm3 (4.5-10.0)
[2023-04-06 08:44] LABS: Hypochromasia 1+ (NORMAL); Platelet Estimate Adequate (Adequate); Schistocytes None Seen (NORMAL)
[2023-04-06] MEDS: LIDOCAINE 5% PATCH 1 PATCH TOPICAL (09:04)
[2023-04-06] MEDS: PANTOPRAZOLE 40 MG TABLET PO (09:04)
[2023-04-06] MEDS: AMIODARONE HCL 200 MG TABLET PO (09:04)
[2023-04-06] MEDS: METOPROLOL SUCCINATE EXT REL 25 MG TABCR PO (09:05)
[2023-04-06] MEDS: SPIRONOLACTONE 25 MG TABLET PO (09:05)
[2023-04-06] MEDS: APIXABAN 5 MG TABLET PO (09:05)
[2023-04-06] MEDS: SACUBITRIL/VALSARTAN 49-51 MG TABLET 1 TABLET PO (09:05)
[2023-04-06] MEDS: DAPTOmycin 500 MG in SODIUM CHLORIDE 0.9% IV 50 ML 100 MG IVPB (09:06)
[2023-04-06 12:23] LABS: Alanine Aminotransferase 18 U/L (6-50); Albumin Level 2.9 g/dL (3.5-5.1); Alkaline Phosphatase 86 U/L (38-126); Aspartate Amino Transferase 27 U/L (17-59); Bilirubin,Total 0.5 mg/dL (0.2-1.3); Blood Urea Nitrogen 8 mg/dL (9-20); Calcium 8.6 mg/dL (8.4-10.2); Carbon Dioxide > 40 mmol/L (22-30); Chloride 95 mmol/L (98-107); Estimated CRCL calculation 84 ml/min; Estimated Glomerular Filt Rate > 60; Glucose 126 mg/dL (65-110); Potassium 3.5 mmol/L (3.4-5.0); Sodium 136 mmol/L (137-145)
--- NOTE | 2023-04-06 14:37 | HOMEO2EVAL ---
Evaluation was performed at [facility] Home Oxygen Evaluation RC: Home Oxygen (O2) Evaluation Start: 04/06/23 13:55 Freq: ONCE Status: Discharge Protocol: RPE Activity Type Activity Date Activity User E-sign Co-sign Detail Recorded Client Recorded Date Recorded By Document 04/06/23 14:08 CLC [email or web address] 04/06/23 14:33 CLC Document 04/06/23 14:15 CLC [email or web address] 04/06/23 14:33 CLC 04/06/23 04/06/23 14:08 14:15 Home O2 Evaluation [Oxygen] -Test Phase Resting Exercise -Oxygen Delivery Room Air Room Air [Pulse Oximetry] -Pulse Oximetry (90-100 %) 96 93 [Pulse Rate] -Pulse Rate (60-100 beats/min) 80 95 [Evaluation] -Activity Tolerance Good -Rating of Perceived Dyspnea (PD) +1 Mild, Noticeable to the Participant but Not to an Observer -Rate of Perceived Exertion (PE) 11 Fairly light Query Text:Click the Protocol Button to View the RPE Scale [Exercise] -Ambulation Distance (feet) 50 -Ambulation Distance (meters) 15.23 [Comments] -Home Oxygen Evaluation Comments Patient states he doesn't walk long distances at home. Walked what the patient felt he could. [Charges] -Evaluation Charges O2 Evaluation by DINORA
--- NOTE | 2023-04-06 16:27 | PM.DS ---
DS: Admitting Diagnosis Discharge Date 04/06/23 Admitting Diagnosis (1) Sepsis: ?Code(s): A41.9 - Sepsis, unspecified organism ?Status:?Acute (2) Hospital-acquired pneumonia: ?Code(s): J18.9 - Pneumonia, unspecified organism; Y95 - Nosocomial condition ?Status:?Acute (3) Multifocal pneumonia: ?Code(s): J18.9 - Pneumonia, unspecified organism ?Status:?Acute (4) Hypoxia: ?Code(s): R09.02 - Hypoxemia ?Status:?Acute (5) Elevated troponin: ?Code(s): R79.89 - Other specified abnormal findings of blood chemistry ?Status:?Acute (6) Acute hypoxemic respiratory failure: ?Code(s): J96.01 - Acute respiratory failure with hypoxia ?Status:?Acute (7) Lumbar discitis: ?Code(s): M46.46 - Discitis, unspecified, lumbar region ?Status:?Acute ?Assessment and Plan: on Daptomycin, Cefepime (8) Afib: ?Code(s): I48.91 - Unspecified atrial fibrillation ?Status:?Acute ?Assessment and Plan: on Amiodarone, Eliquis was held due to thrombocytopenia DS: Discharge Diagnosis Discharge Diagnosis (1) Sepsis: Code(s): A41.9 - Sepsis, unspecified organism Status: Acute (2) Hospital-acquired pneumonia: Code(s): J18.9 - Pneumonia, unspecified organism; Y95 - Nosocomial condition Status: Acute (3) Multifocal pneumonia: Code(s): J18.9 - Pneumonia, unspecified organism Status: Acute (4) Hypoxia: Code(s): R09.02 - Hypoxemia Status: Acute (5) Elevated troponin: Code(s): R79.89 - Other specified abnormal findings of blood chemistry Status: Acute (6) Acute hypoxemic respiratory failure: Code(s): J96.01 - Acute respiratory failure with hypoxia Status: Acute (7) Lumbar discitis: Code(s): M46.46 - Discitis, unspecified, lumbar region Status: Acute Assessment and Plan: on Daptomycin, Cefepime (8) Afib: Code(s): I48.91 - Unspecified atrial fibrillation Status: Acute Assessment and Plan: on Amiodarone, Eliquis was held due to thrombocytopenia DS: Summary Hospital Course Hospital Course: Per H/P: Patient is a 78-year-old male with history of lumbar diskitis, atrial fibrillation who presents to the emergency department accompanied by significant other for feeling sick which he described as having recurrent nausea but no vomiting or diarrhea.? He denies chest pain, abdominal pain, shortness Of breath, fever, cough, congestion, sore throat or chills.? patient admits to no bowel movements for the past 2 days and has a history of constipation for which she takes stool softeners.? Patient is coming from the rehabilitation center noting that he was admitted at [facility] for an infection in his back and is on IV antibiotics via PICC line in his right upper extremity and has been taking these as prescribed and is supposed to be on them until April 19.?? Patient denies history of requiring supplemental oxygen was currently on 2 L supplemental oxygen to maintain pulse oximetry greater than 92%.? Patient was evaluated in the ER and found to be borderline hypoxemic requiring 2 L of oxygen, and also to have diskitis, elevated troponin which gradually rising.? EKG showed right bundle-branch block with no acute STT wave changes.? CT chest abdomen pelvis with done with contrast (not a CTA), which showed L4-L5 diskitis with atelectasis.? the following medical issues have been addressed during hospitalization Paroxysmal atrial fibrillation his EKG showed right bundle-branch block, no prior EKG for comparison, Continue amiodarone 200 mg daily Discontinue eliquis 5 mg b.i.d. p.o. because of her thrombocytopenia 04/03: Some also dyspnea and leukopenia have resolved, will resume Eliquis 5 mg b.i.d. p.o. 04/04: Rate controlled, continue current management Lumbar diskitis CT chest abdomen pelvis with contrast was done ?found to have diskitis at L4-L5.? nd IV d
== END 2023-04-06 14:30 | disposition home health service (06) | DRG 871 ==
LOC: ANHED 21:20 → ANHIMU 03-27 00:27 → ANH2MED 03-29 10:58 → ANH3MEDSUR 04-08 10:32 → ANH2MED 04-08 10:32
PROVIDERS: Internal Medicine; Nurse Practitioner Family; Admitting Provider Student in an Organized Health Care Education/Training Program; Emergency Provider Student in an Organized Health Care Education/Training Program; Visit Provider Hospitalist
DX: A41.9 Sepsis, unspecified organism (principal); J18.9 Pneumonia, unspecified organism; J96.01 Acute respiratory failure with hypoxia; J96.02 Acute respiratory failure with hypercapnia; I50.22 Chronic systolic (congestive) heart failure; D61.818 Other pancytopenia; T82.898A Other specified complication of vascular prosthetic devices, implants and grafts, initial encounter; T36.95XA Adverse effect of unspecified systemic antibiotic, initial encounter; B96.89 Other specified bacterial agents as the cause of diseases classified elsewhere; D69.59 Other secondary thrombocytopenia; I48.0 Paroxysmal atrial fibrillation; I45.10 Unspecified right bundle-branch block; I11.0 Hypertensive heart disease with heart failure; K59.00 Constipation, unspecified; K21.9 Gastro-esophageal reflux disease without esophagitis; M46.46 Discitis, unspecified, lumbar region; Y95 Nosocomial condition; Z79.01 Long term (current) use of anticoagulants; Z20.822 Contact with and (suspected) exposure to COVID-19
CPT/HCPCS: 36415; 36569; 36600; 70450; 71045; 71260; 74177; 80048; 80053; 80307; 81001; 82140; 82274; 82550; 82607; 82728; 82746; 82805; 82948; 83540; 83550; 83605; 83690; 83735; 83880; 83921; 84132; 84145; 84238; 84443; 84484; 85025; 85046; 85055; 85380; 85610; 85652; 85730; 86023; 86038; 86140; 86850; 86900; 86901; 87040; 87086; 87186; 87637; 87641; 92610; 93005; 94003; 94618; 94640; 94660; 94762; 96361; 96374; 96375; 97110; 97116; 97161; 97165; 97530; 97535; 97550; 99285; A9270; C8929; J0692; J0878; J1756; J1885; J2405; J2765; J7030; J7050; Q9957; Q9967

== ENCOUNTER 2023-05-22 08:23 | Outpatient (CLI) | payer MEDICARE, SELFPAY ==
--- NOTE | 2023-06-02 19:32 | WPDSLEEPSTUD ---
Sleep Study Date of Study: 05/22/23 Ordering Provider: Kenton Weaver MD Interpreting Physician: Shara Bourne DO Sleep Study Type: Split Polysomnogram Height: 1.65 m Weight: 98.43 kg Body Mass Index: 36.1 Neck Circumference (inches): 20 [place]: 19 Reason for Sleep Study Nocturnal hypoxemia when hospitalized in March 2023. Sleep History The patient is a 78-year-old male with atrial fibrillation, lumbar diskitis, hypertension, multinodular goiter, seasonal allergies and obesity that had a sleep study ordered by his plant protection officer for evaluation of sleep apnea. The patient rarely awakens from sleep short of breath. He rarely awakens at night with heartburn, belching or cough. He occasionally snores and is occasionally loud enough that others complain. He rarely has trouble sleeping when he has a cold. He denies waking up gasping for air throughout the night. He occasionally has breathing problems at night observed by himself or others. He denies sweating excessively at night. He denies having heart palpitations or irregular heartbeats during the night. He frequently falls asleep during the day and occasionally falls asleep while driving. He denies sleep paralysis, cataplexy and hypnagogic / hypnopompic hallucinations. He denies having trouble at school or work due to sleepiness. He denies feeling afraid of going to sleep. He denies having nightmares. He denies remembering his dreams. He denies having thoughts racing through his mind. He denies feeling sad or depressed. He denies having anxiety. He occasionally has muscular tension. He denies noticing parts of his body jerk. He occasionally kicks during the night. He rarely experiences crawling and aching feelings in his legs. He frequently experiences leg pain during the night. He denies grinding his teeth during sleep and denies awakening with morning jaw pain. He is constantly bothered by pain during the day and constantly awakened by pain during the night. He constantly wakes up feeling stiff in the morning. He constantly wakes up with sore or achy muscles. He constantly wakes up with pain in the neck, spine and other joints. He goes to bed at 9:30 p.m. on both weekdays and weekends. He is able to fall asleep within a few minutes. He wakes up 6 times throughout the night due to pain and needing to urinate. He is able to fall back asleep within 2 minutes. He wakes up at 8:00 a.m. on both weekdays and weekends. He typically gets 8 hours of sleep per night. He will stay in bed for 5 minutes after waking up in the morning. He currently lives with his . He denies consuming any caffeinated beverages within 2 hours of bedtime. He denies engaging in physical exercise before bedtime. He will watch television before falling asleep. He will take naps in the afternoon or the evening but they are not refreshing. He consumes 1 caffeinated beverage per day. He denies tobacco, alcohol and recreational drug use. FOR[facility]LY [facility] Past Medical History Medical History HFrEF (heart failure with reduced ejection fraction) HTN (hypertension) Lumbar discitis Family History Family History Sibling Lymphoma Mother TIA (transient ischemic attack) Breast cancer Father Cancer Social History Social History Smoking status: Never smoker Alcohol intake: never Substance use: never Substance use type: does not use Do You Feel Safe in your Home?: Yes Lack of Transportation: No Lack of Food: Never True Current Housing: I Have Housing Concerned About Future Housing: No Difficulty Paying Gas/Electric Bills: No Difficulty Paying for Meds: No Currently Unemployed: No Education: Bachelor's Degree Difficulty w/ Childcare or Family Care: No Spiritual care concerns: No Medicati
[2023-06-02 19:45] VITALS: BMI 36.1
== END 2023-05-23 07:46 | disposition home or self-care (01) ==
LOC: ANHCSM 08:26
PROVIDERS: PCP Chiropractor; Visit Provider Internal Medicine Pulmonary Disease
DX: G47.10 Hypersomnia, unspecified (principal); G47.33 Obstructive sleep apnea (adult) (pediatric)
CPT/HCPCS: 95811

== ENCOUNTER 2023-07-07 10:04 | Emergency (ER) | payer MEDICARE, SELFPAY ==
[2023-07-07] VITALS (7 sets, daily range): BP systolic 131–151; BP diastolic 73–86; PULSE 63; RESP 18; TEMP 36.9; O2SAT 88–99
--- NOTE | ~2023-07-07 | XR_ITS ---
EXAMINATION: XR hip BI 2V w AP pelvis DATE: 07/07/2023 12:51 INDICATION: Chronic hip pain. TECHNIQUE: An anteroposterior view of the pelvis and 2 views of each hip were obtained. COMPARISON: None. FINDINGS: There is lumbar levocurvature and severe spondylosis. No fracture. There is mild osteoarthr itis of the hips. IMPRESSION: 1. Mild osteoarthritis of the hips. Reviewed, dictated and finalized at location E.
--- NOTE | 2023-07-07 11:55 | ED.BACK ---
HPI - Back Pain/Injury General Chief Complaint: Back Pain/Injury Stated Complaint: back pain Time Seen by Provider: 07/07/23 10:32 History of Present Illness HPI Narrative: patient is a 78-year-old male with history of chronic pain, prior diskitis here today with bilateral hip pain. He states that the hip pain is been present for approximately 6 weeks. He does note that in February he had been admitted to [facility] for concerns for diskitis in his lower back, had been on PICC line antibiotics and was discharged to a rehab facility. At the rehab facility contracted pneumonia and was sent to this hospital for hospitalization. He has since completed all of his antibiotics and he notes that his back specialist had low suspicion for actual infection in his spine. He is currently on EpiPen or vein patch as well as muscle relaxers via a pain specialist through [facility]. he notes he saw them approximately a week ago at which time a did lidocaine and cortisone injections in his lower back with momentary relief of his pain however it worsened again after a couple of days and he went into the [facility] on Saturday. There they gave him some morphine and did x-rays of his hips and CT scans and noted that nothing was broken. He had some relief of his pain with morphine however it returned and this morning it became unbearable and this caused him to call an ambulance to bring him into the emergency department. He notes no recent falls and no change in nature of his pain since he was seen in the emergency department on Saturday. He notes that his lower back pain is very minimal at this time and has not changed significantly since that hospitalization and rehab stay at the beginning of the year. His main complaint is his bilateral hip pain which seems to be worse with standing and causes some difficulty with bearing weight. Related Data Home Medications Medication Instructions Recorded Confirmed acetaminophen 325 mg tablet 650 mg PO Q6H PRN Pain (Scale 03/18/23 05/14/23 Score 1-3) clotrimazole 1 % topical cream 1 applic topical BID 03/18/23 05/14/23 albuterol sulfate 90 mcg/actuation 1 puff inhalation Q4H PRN 05/14/23 05/14/23 aerosol inhaler amiodarone 200 mg tablet 200 mg PO DAILY 05/14/23 05/14/23 apixaban 5 mg tablet (Eliquis) 5 mg PO BID 05/14/23 05/14/23 azelastine 205.5 mcg (0.15 %) 2 spray intranasal DAILY 05/14/23 05/14/23 nasal spray buprenorphine 10 mcg/hour weekly 1 patch transdermal Q7D 05/14/23 05/14/23 transdermal patch docusate sodium 100 mg capsule 100 mg PO DAILY 05/14/23 05/14/23 metoprolol succinate 50 mg 50 mg PO DAILY 05/14/23 05/14/23 tablet,extended release 24 hr pantoprazole 40 mg granules 40 mg PO DAILY 05/14/23 05/14/23 delayed-release for susp in packet spironolactone 25 mg tablet 25 mg PO DAILY 05/14/23 05/14/23 Allergies Allergy/AdvReac Type Severity Reaction Status Date / Time cefazolin Allergy Rash Verified 03/26/23 14:58 terbinafine Allergy Rash Verified 04/01/23 09:19 codeine AdvReac Nausea and Verified 04/01/23 09:19 Vomiting oxycodone AdvReac Other Verified 05/14/23 15:23 Review of Systems Review of Systems: All systems reviewed & are unremarkable except as noted in HPI and below PMFSH Past Medical History Medical History HFrEF (heart failure with reduced ejection fraction) HTN (hypertension) Lumbar discitis Family History Family History Sibling Lymphoma Mother TIA (transient ischemic attack) Breast cancer Father Cancer Social History Social History Smoking status: Never smoker Alcohol intake: never Substance use: never Substance use type: does not use Do You Feel Safe in your Home?: Yes Lack of Transportation: No Lack of
[2023-07-07] MEDS: MORPHINE SULFATE (*CRX) 4 MG/ML INJ IV PUSH (12:39)
[2023-07-07] MEDS: ONDANSETRON INJ 4 MG/2 ML VIAL IV PUSH (12:40)
== END 2023-07-07 14:16 | disposition home or self-care (01) ==
PROVIDERS: Emergency Provider Student in an Organized Health Care Education/Training Program
DX: M25.552 Pain in left hip (principal); M25.551 Pain in right hip; I11.0 Hypertensive heart disease with heart failure; I50.9 Heart failure, unspecified
CPT/HCPCS: 73521; 96374; 96375; 99284; J2270; J2405

== ENCOUNTER 2023-07-25 10:30 | Outpatient (RCR) | payer MEDICARE, SELFPAY ==
--- NOTE | 2023-05-09 09:12 | PTOPEVAL1 ---
Assessment and note entered by Kenton Ogden Evaluation Information Assessment Status Evaluation Diagnosis bilateral lower extremity pain, back pain Onset 02/25/23 Subjective Information Pt. reports that he has had 40 year of on/off back pain. He states that his most recent bout began around mid February. He describes constant pain across the low back. He states that he has neuropathy in both feet and they are both constantly numb. He reports that that he is currently walking with two canes, but was using a walker till a week ago. Pt. reports that he was recently hospitalized due to a developed infection , and was hospitalized for 5 weeks. He did participate in rehab with [facility]. He reports that he returned home after 1 week. he states that he is capable of walking short distances in his home, but states that he uses a wc in the community. He reports that his is able to assist with laying clothes out and helping him into the shower. He reports that prior to his onset of pain in February he was active caring for his home, and was able to complete heavy tasks around the home, such as tilling his garden. He reports that he can currently stand for about 1 minute before having to sit. He is not currently driving, but was driving before onset in February. He reports that his doctor requested he participate in aqua therapy. He states that his goal for therapy is to be able to move well enough to till his garden and return to driving by himself. he also wants to be able to stand long enough to cook a meal. Reported Pain Level Pain Score 7: Self Report Assessment PT Clinical Summary Pt. is a 78 year old male who enters the clinic with low back pain and l.e. weakness. He presents with functional decline, impaired gait, impaired balance, generalized l.e. weakness and pain on this date. continued skilled PT is indicated in order to improve these areas to allow the pt. to be able to participate in IADL's and achieve his goal of being able to stand for a longer duration. Due to pt. inability to tolerate standing for adequate duration recommend initiating aquatic rehab to allow for better tolerance to activity and transition treatment to land based therapy as indicated by pt. improvements in standing endurance.
--- NOTE | 2023-05-09 09:15 | OPREHPOC ---
Outpatient Therapy Plan of Care This is a Multidisciplinary Plan of Care that may contain components documented by all disciplines (PT, OT, and ST.) PT Problem 1 PT Problem #1 Knowledge Deficit PT Goal 1 Goal Independent with a HEP addressing l.e. strength and standing endurance Target Visit 2 PT Problem 2 PT Problem #2 Impaired Balance PT Goal 1 Goal Improve tinetti score to 19 or greater indicating improved function and safety. Pt. will complete the 5 time sit to stand test in 14 seconds or less. Target Visit 10 PT Problem 3 PT Problem #3 Impaired Gait PT Goal 1 Goal Pt. will be able to complete the 6 minute walk test with a distance of 600' or greater. Target Visit 10 PT Problem 4 PT Problem #4 Impaired Functional Mobil PT Goal 1 Goal Pt. will provide subjective reports of being able to stand for duration of 10 minute to participate in household tasks such as cooking. Target Visit 10
--- NOTE | 2023-06-27 12:11 | PTOPPROG ---
Assessment and note entered by Kenton Ogden Evaluation Information Assessment Status Progress Diagnosis bilateral lower extremity pain, back pain Onset 02/25/23 Subjective Information Pt. reports that he was noticing initial progress with therapy. He states that about 2 weeks ago he had a sudden bout of intense pain located along the left side of the low back. He reports that pain has progressed into the left side of the buttock and into the leg. He states that he has gotten better, but pain is still intense. Despite his pain he states that he was able to help his with installing a garden. He reports that he can be on his feet for about 1 hour before having to sit. He states that he is willing to transition to land based therapy to focus on improving strength and continuing to reduce pain. Assessment PT Clinical Summary Pt. has demonstrated progress in regards to function despite continued pain reports. He is appropriate to advance treatment towards land based rehab in order to continue to improve function. Pt. continues to desire to reduce pain and be able to walk without an AD. At this time recommend continued skilled PT to continue to address mobility, core strength, flexibility and pain reduction. Plan of Care Interventions Electrical Stimulation,Hot Pack/Cold Pack,Manual Therapy,Neuro Re-education,Patient/Caregiver Educati,Therapeutic Activities,Therapeutic Exercise PT Services Indicated Yes Treatment Frequency and 2x/week x 6 visits Duration These treatments will address the objective and functional deficits as defined above. The patient will be advanced safely and appropriately in order for the patient to progress towards his/her prior level of function. Additional exercises will be introduced and as well as a comprehensive home exercise program upon discharge, if needed, ?to ensure carryover of functional gains achieved in the clinic. This treatment plan has been reviewed and agreement upon by the patient.
--- NOTE | 2023-07-12 07:12 | PCPTNOTE ---
Patient called to cancel due to increased back pain
--- NOTE | 2023-07-25 11:31 | PTOPDC ---
Assessment and note entered by Kenton Ogden Evaluation Information Assessment Status Progress Diagnosis bilateral lower extremity pain, back pain Onset 02/25/23 Subjective Information Pt. reports that his pain levels continue to fluctuate. he reports that he was able to put his entire garden in. He reports that he was feeling good until this morning and is noticing some cramping in his legs. He reports that he will continue with exercise and is ready for discharge at this time. Reported Pain Level Pain Score 6: Self Report Assessment PT Clinical Summary Pt. demonstrates improved endurance, despite no change in pain reports. He is limited during treatment today due to lower extremity cramping. At this time encouraged pt. to continue with his HEP up until the date of his surgery. He will be discharged from our care. Plan of Care PT Services Indicated No
== END 2023-07-25 12:42 | disposition home or self-care (01) ==
LOC: ANHPT 10:30
PROVIDERS: PCP Chiropractor; Visit Provider Chiropractor
DX: M79.604 Pain in right leg (principal); M79.605 Pain in left leg
CPT/HCPCS: 97014; 97110; 97113; 97140; 97161; 97530; 97750; G0283

== ENCOUNTER 2023-10-18 10:30 | Outpatient (RCR) | payer MEDICARE, SELFPAY ==
--- NOTE | 2023-10-01 08:47 | OPREHPOC ---
Outpatient Therapy Plan of Care This is a Multidisciplinary Plan of Care that may contain components documented by all disciplines (PT, OT, and ST.) PT Problem 1 PT Problem #1 Knowledge Deficit PT Goal 1 Goal / Goal Update [place] with HEP Target Visit 4 PT Problem 2 PT Problem #2 Pain PT Goal 1 Goal / Goal Update Report 0/10 pain with sit to stand after 30 minutes of sitting Target Visit 10 PT Problem 3 PT Problem #3 Impaired Strength PT Goal 1 Goal / Goal Update Improve micah hip flexor strength to 4+/5 to improve foot clearance with gait and mobility Target Visit 10 PT Goal 2 Goal / Goal Update Improve micah hip abduction strength to 4/5 to improve lateral stability with gait and ADLs Target Visit 10 PT Problem 4 PT Problem #4 Impaired Gait PT Goal 1 Goal / Goal Update Improve 2 minute walk test to 350' to improve mobility and safety through gait speed and control Target Visit 10 PT Goal 2 Goal / Goal Update Patient will demonstrate ability to perform overhead reach on uneven surface for core stability and balance improvement. Target Visit 10
--- NOTE | 2023-10-01 08:47 | PTOPEVAL1 ---
Assessment and note entered by Brandin Rendon, PT Evaluation Information Assessment Status Evaluation Diagnosis Spinal fusion ICD-10 Condition Codes (PT) Pain in low back M54.50 Onset 08/27/23 Subjective Information Reports that overall he is doing great. Only pain he is having is at nighttime on the top of his thighs. HE has been using [place] or heating pad to help with this. He is still up and down for a lot of the night. He is unsure what he is able to do because he hasn't really pushed himself. Has been using a riding cart for a while. He has been very cautious to not reinjure himself. Stiffness is his biggest issue right now. If he goes to get up from sitting for a while he is very stiff. Reports that he is unable to lay on his back. Reported Pain Level Pain Score 2: Self Report Assessment PT Clinical Summary Patient presents with micah hip weakness, stiffness, and decrease conditioning following lumbar fusion . Patient is highly motivated and wants to return to working in garden and walking. 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 Plan of Care Interventions Electrical Stimulation,Gait Training,Manual Therapy,Neuro Re-education,Therapeutic Activities, Therapeutic Exercise PT Services Indicated Yes Treatment Frequency and 2x/week for 10 visits Duration These treatments will address the objective and functional deficits as defined above. The patient will be advanced safely and appropriately in order for the patient to progress towards his/her prior level of function. Additional exercises will be introduced and as well as a comprehensive home exercise program upon discharge, if needed, ?to ensure carryover of functional gains achieved in the clinic. This treatment plan has been reviewed and agreement upon by the patient.
== END 2023-12-30 23:59 | disposition home or self-care (01) ==
LOC: ANHPT 10:30
DX: Z98.1 Arthrodesis status (principal)
CPT/HCPCS: 97110; 97140; 97161; 97530